=== PATIENT | male | born 1955 | race Caucasian/White ===

== ENCOUNTER 2020-11-21 13:18 | Emergency (ER) | payer OTHER, SELFPAY ==
[2020-11-21 13:46] VITALS: BP 162/97; PULSE 89; RESP 16; TEMP 36.8; O2SAT 98
--- NOTE | 2020-11-21 14:14 | ED.DENTAL ---
HPI - Dental/Oral General Chief complaint: Dental/Oral Stated complaint: gum Bleeding Time Seen by Provider: 11/21/20 13:55 Source: patient Mode of arrival: ambulatory Limitations: no limitations History of Present Illness HPI Narrative: Darwin Fuentes is a 65 yo male with PAF, hypertension, high cholesterol, chronic anticoagulation, intact care with bleeding gum. He is on Xarelto and baby aspirin and yesterday had a salad with crunchy croutons for lunch stated that his gum began to bleed then and he had difficulty stopping it. Went to bed at 1030 last night got the gum had stopped bleeding but today when he tried to eat some oatmeal the gum began to bleed again and he came to express care after 3-1/2 hours and unable to stop the oozing. I did call his PCP who is the person prescribing his beta-blockers and anticoagulation, but there is no answering service on the weekend. Called pharmacy and [facility] recommended he either go to the emergency room or come to an urgent care. On his own he held his baby aspirin last night Had bypass surgery in 2010. Was without insurance to 2018. Was found to have A. fib on exam on July 20 and had an echocardiogram and stress test that showed he had normal ejection fraction. Placed on Xarelto on August 06, 2020 and has been taking Xarelto and baby aspirin along with his beta-blockers since that time Related Data Home Medications Medication Instructions Recorded Confirmed aspirin 81 mg tablet,delayed 81 mg PO DAILY 08/23/19 11/21/20 release amlodipine 10 mg PO DAILY 11/21/20 11/21/20 atorvastatin 20 mg PO DAILY 11/21/20 11/21/20 benazepril 40 mg PO DAILY 11/21/20 11/21/20 carvedilol 25 mg PO DAILY 11/21/20 11/21/20 ezetimibe 10 mg PO DAILY 11/21/20 11/21/20 rivaroxaban [Xarelto] 20 mg PO DAILY 11/21/20 11/21/20 Allergies Allergy/AdvReac Type Severity Reaction Status Date / Time simvastatin AdvReac Intermediate Back Pain Verified 11/21/20 13:23 Review of Systems Review of Systems: Narrative: CONSTITUTIONAL: Denies fever, chills, sweats. EYES: Denies visual changes, redness, discharge. ENT: Denies rhinorrhea, congestion, sore throat, otalgia. CARDIOVASCULAR: Denies chest pain, palpitations, edema. RESPIRATORY: Denies dyspnea, wheezing, cough Mouth: Bleeding gum around tooth 29 GASTROINTESTINAL: Denies abdominal pain, nausea, vomiting, diarrhea. GENITOURINARY: Denies dysuria, hematuria, abnormal discharge SKIN: Denies rash or itching. NEUROLOGIC: Denies numbness, or focal weakness. PSYCHIATRIC: Denies anxiety or depression. [facility] Past Medical History Medical History (Updated 11/21/20 @ 14:40 by Katya Wilson CNP) Chronic anticoagulation Coronary artery disease involving coronary bypass graft PAF (paroxysmal atrial fibrillation) Family History Family History Father Family history of lung cancer, Onset Age: 75 Mother Patient's mother is Social History Social History Smoking status: Former smoker Second hand tobacco smoke exposure: No Smoking end date: 10/09/07 Alcohol intake: never Gender identity (if verbalized by the patient): Male Comments At time of signature, I agree with nursing past medical, surgical, social and family history. There is no relevant family history pertinent to the presenting complaint. Exam Narrative: Exam Narrative: GENERAL: This is a well-nourished, well-developed patient, in mild distress. Anxious HEAD: normocephalic, atraumatic. EYES: Sclera clear/white. Vision is grossly intact. EARS: External ears normal. Hearing grossly intact. NOSE: External nose normal without nasal discharge, nares without redness, no rhinorrhea Mouth: blood oozing around tooth 29-no obvious abrasion THROAT: Mucous membranes moist, NECK: Neck supple, non-tender CARDIOVASCULAR: Regularly irregular rate and rhythm
== END 2020-11-21 15:10 | disposition home or self-care (01) ==
PROVIDERS: Emergency Provider Nurse Practitioner
DX: K06.8 Other specified disorders of gingiva and edentulous alveolar ridge (principal); Z87.891 Personal history of nicotine dependence; I10 Essential (primary) hypertension; E78.00 Pure hypercholesterolemia, unspecified; I25.10 Atherosclerotic heart disease of native coronary artery without angina pectoris; Z95.1 Presence of aortocoronary bypass graft; Z79.82 Long term (current) use of aspirin
CPT/HCPCS: 99212; G0463

== ENCOUNTER 2020-12-29 19:44 | Emergency (ER) | payer OTHER, SELFPAY ==
[2020-12-29 19:52] VITALS: BP 147/81; PULSE 91; RESP 17; TEMP 37.1; O2SAT 98
--- NOTE | 2020-12-29 20:56 | PC.NURSE ---
Pts gauze pad in mouth replaced due to blood saturation. No clots seen.
--- NOTE | 2020-12-29 22:15 | PC.NURSE ---
Gum still bleeding. Gauze exchanged by MILVIA navarro
--- NOTE | 2020-12-29 22:44 | ED.GENADULT ---
HPI - General Adult General Chief complaint: Dental/Oral Stated complaint: CAN'T GET MY GUM TO STOP BLEEDING, ON XARELTO Time Seen by Provider: 12/29/20 21:18 History of Present Illness HPI narrative: Patient 65-year-old gentleman who presents to emergency department chief complaint of bleeding gums. Patient reports he is currently on Xarelto and ate. after eating he noticed that he started bleeding out of his mouth. The patient reports he tried to use pressure to the area and then used a tea bag and went to urgent care. Patient reports that urgent care sent him to the emergency department as they did not have any method to stop the bleeding.. Related Data Home Medications Medication Instructions Recorded Confirmed aspirin 81 mg tablet,delayed 81 mg PO DAILY 08/23/19 11/21/20 release amlodipine 10 mg PO DAILY 11/21/20 11/21/20 atorvastatin 20 mg PO DAILY 11/21/20 11/21/20 benazepril 40 mg PO DAILY 11/21/20 11/21/20 carvedilol 25 mg PO DAILY 11/21/20 11/21/20 ezetimibe 10 mg PO DAILY 11/21/20 11/21/20 rivaroxaban [Xarelto] 20 mg PO DAILY 11/21/20 11/21/20 Allergies Allergy/AdvReac Type Severity Reaction Status Date / Time simvastatin AdvReac Intermediate Back Pain Verified 12/29/20 20:57 Review of Systems Review of Systems: Narrative: A 10 system review of systems was completed on the patient and is negative except for what is stated in the HPI. Nursing and ancillary documentation was reviewed. [facility] Past Medical History Medical History Chronic anticoagulation Coronary artery disease involving coronary bypass graft PAF (paroxysmal atrial fibrillation) Family History Family History Father Family history of lung cancer, Onset Age: 75 Mother Patient's mother is Social History Social History Smoking status: Former smoker Second hand tobacco smoke exposure: No Smoking end date: 10/09/07 Alcohol intake: never Gender identity (if verbalized by the patient): Male Exam Narrative: Exam Narrative: GENERAL: Well-appearing, well-nourished, and in no acute distress. HEAD: Normocephalic, atraumatic. EYES: PERRLA and EOMI. ENT: Nares clear, no rhinorrhea or epistaxis. Mucous membranes moist. There is swelling and bleeding in the upper molar region. NECK: Supple. CHEST: Clear to auscultation. No respiratory distress. HEART: Regular rate and rhythm. No murmur heard. Normal peripheral pulses. ABDOMEN: Soft, nontender, nondistended, normal active bowel sounds. EXTREMITIES: Normal range of motion. No edema. SKIN: Warm, dry, no rash. NEURO: No focal deficits. Alert and oriented x3. PSYCH: Normal mood and affect. Course Course Emergency Course: A 2 x 2 was used with direct pressure to the affected area. After pressure was applied bleeding was controlled the patient was observed and currently is not having any further bleeding. Vital Signs Vital signs: Vital Signs Temperature 37.1 C 12/29/20 19:52 Pulse Rate 91 12/29/20 19:52 Respiratory Rate 17 12/29/20 19:52 Blood Pressure 147/81 H 12/29/20 19:52 Pulse Oximetry 98 12/29/20 19:52 Temperature 37.1 C 12/29/20 19:52 Pulse Rate 91 12/29/20 19:52 Respiratory Rate 17 12/29/20 19:52 Blood Pressure 147/81 H 12/29/20 19:52 Pulse Oximetry 98 12/29/20 19:52 Medical Decision Making Vital Signs Vital Signs: Vital Signs Temperature 37.1 C 12/29/20 19:52 Pulse Rate 91 12/29/20 19:52 Respiratory Rate 17 12/29/20 19:52 Blood Pressure 147/81 H 12/29/20 19:52 Pulse Oximetry 98 12/29/20 19:52 Temperature 37.1 C 12/29/20 19:52 Pulse Rate 91 12/29/20 19:52 Respiratory Rate 17 12/29/20 19:52 Blood Pressure 147/81 H 12/29/20 19:52 Pulse Oximetry 98 12/29/20 19:52 Discharge Plan Discha
== END 2020-12-29 23:13 | disposition home or self-care (01) ==
PROVIDERS: Emergency Provider Emergency Medicine; PCP Internal Medicine
DX: K06.8 Other specified disorders of gingiva and edentulous alveolar ridge (principal); I25.10 Atherosclerotic heart disease of native coronary artery without angina pectoris; I48.0 Paroxysmal atrial fibrillation; Z79.01 Long term (current) use of anticoagulants; Z79.82 Long term (current) use of aspirin; Z87.891 Personal history of nicotine dependence; Z95.1 Presence of aortocoronary bypass graft
CPT/HCPCS: 99282

== ENCOUNTER 2025-05-08 12:45 | Emergency (ER) | payer OTHER, SELFPAY ==
--- NOTE | ~2025-05-08 | XR_ITS ---
XR hip LT 2V w AP pelvis 05/08/2025 13:29 Indication: Left hip pain Procedure: AP pelvis and 2 views left hip Comparison: No prior studies for comparison. 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 There is remodeling of the femoral head and acetabulum. Moderate osteoarthritis of the right hip. Pe lvic rings intact. No acute fracture. Impression: 1: Advanced osteoarthritis of the hips, severe on the left. Reviewed, dictated and finalized at location B. Impression: 1: Advanced osteoarthritis of the hips, severe on the left.
[2025-05-08 12:46] VITALS: BP 167/77; PULSE 70; RESP 16; TEMP 36.7; O2SAT 98
--- OUTSIDE RECORDS SUMMARY | 2025-05-08 12:48 | XMS_ITS | Clinical Summary ---
Author Organization [facility] Address [address] [place] [address] Care Team Providers Care Quantitative Software Engineer Name Role Phone Ewa Rea MD Unavailable [phone] Yvonne Harrison DO Primary Care Provider [phone] Social History Tobacco Use Types Packs/Day Years Used Date Smoking Tobacco: Never Assessed Sex and Gender Information Value Date Recorded Sex Assigned at Not on file Legal Sex Male 4:15 PM CDT Gender Identity Not on file Sexual Orientation Not on file Plan of Treatment Health Maintenance Due Date Last Done Comments Colorectal Cancer Screening Colonoscopy (10 Years) 1955 Hepatitis C 1973 DTaP, Tdap and Td Vaccines ( 1 - Tdap) 1974 Pneumococcal Vaccine: 50+ Ye ars (1 of 1 - PCV) 2005 Zoster Vaccines (1 of 2) 2005 Annual Medicare Wellness Visit 2020 COVID-19 Vaccine ( - 2023-2 5 season) 2024 RSV Immunization or 60+ Years (1 - 1-dose 75+ series) 2030 Meningococcal B Vaccine Aged Out No l onger eligible based on patient's age to complete this topic Meningococcal Vaccine Aged Out No naa domingo eligible based on patient's age to complete this topic RSV Immunizations Under 20 Months Aged Out No longer eligible based on patient's age to complete this topic Insurance [employer] Care Teams Quantitative Software Engineer Relationship Specialty Start Date End Date Yvonne Harrison DO [facility] [place] [phone] PCP - General INTERNAL MEDICINE 09/12/24 Ewa Rea MD [address] [place] [id number] INTERVENTIONAL CARDIOLOGY 09/10/24
--- OUTSIDE RECORDS SUMMARY | 2025-05-08 12:48 | XMS_ITS | Encounter Summary ---
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 Historical Provider Final Res ult documented in this encounter Visit Diagnoses Not on filedocumented in this encounter Care Teams Material Control Manager Relationship Specialty Start Date End Date Yvonne Harrison DO PCP - General 07/21/20 documented as of this encounter
--- OUTSIDE RECORDS SUMMARY | 2025-05-08 12:48 | XMS_ITS | Encounter Summary ---
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 Historical Provider Final Res ult documented in this encounter Visit Diagnoses Not on filedocumented in this encounter Care Teams Religious Assistant Relationship Specialty Start Date End Date Yvonne Harrison DO PCP - General 07/21/20 documented as of this encounter
--- OUTSIDE RECORDS SUMMARY | 2025-05-08 12:48 | XMS_ITS | Clinical Summary ---
Author Organization [facility] Address [address] [place] [address] Care Team Providers Care Boot Lace Cutter Machine Name Role Phone Yvonne Harrison Primary Care Provider [phone] Allergies No known active allergies Medications rivaroxaban (XARELTO) 20 mg tablet Take 1 tablet (20 mg total) by mouth daily 0 Active carvediloL (COREG) 25 mg tablet Take 1 tablet (25 mg total) by mouth 2 (two) times a day with meals 0 Active atorvastatin (LIPITOR) 20 mg tablet Take 1 tablet (20 mg total) by mouth daily 0 Active ezetimibe (ZETIA) 10 mg tablet Take 0.5 tablets (5 mg total) by mouth daily 0 Active sacubitriL-alec sartan (Entresto) 97-103 mg tabletIndicati ons:chronic heart failure Take 1 tablet by mouth 2 (two) times a day 180 tablet 3 4 09/10/20 25 Active hydrALAZINE (APRESOLINE) 50 mg tabletIndicati ons:hypertensi on Take 1 tablet (50 mg total) by mouth 3 (three) times a day 270 tablet 3 5 02/21/20 26 Active amiodarone (PACERONE) 200 mg tablet TAKE 1 TABLET BY MOUTH EVERY DAY 90 tablet 3 5 Active Jardiance 10 mg tablet TAKE 1 TABLET BY MOUTH EVERY DAY 90 tablet 1 5 Active Jardiance 10 mg tablet TAKE 1 TABLET BY MOUTH EVERY DAY 90 tablet 1 5 04/14/20 25 Discontinued Active Problems Problem Noted Date Diagnosed Date Adverse effect of amiodarone 12/23/2024 Chronic systolic heart failure 04/05/2024 Hx of CABG 04/05/2024 Assessment & Plan (04/05/2024 10:37 PM CDT): (billings-lad, SVG-PDA, SVG-1st diagonal) Primary hypertension 04/05/2024 Coronary artery disease due to calcified coronar y lesion 04/05/2024 Longstanding persistent atrial fibrillation 03/10 Morbid obesity 04/05/2024 Encounters Date Type Department Care Team Description 04/18/[address] [facility] Medical [facility] Cardiology [address] [place] [phone] ProviderShira MD 02/24/2025 Telephone [facility] Cardiology [address] [place] [address] [place] [phone] Ewa Rea MD Hypertension from Last 3 Months Surgical History Surgery Date Site/Laterality Comments CORONARY ARTERY BYPASS GRAFT 2009 BACK SURGERY CARDIAC CATHETERIZATION Medical History Medical History Date Comments Hypertension Hyperlipidemia Atrial fibrillation (HCC) Family History Medical History Relation Name Comments No Known Problems Father No Known Problems Mother Relation Name Status Comments Father Mother Social History Tobacco Use Types Packs/Day Years Used Date Smoking Tobacco: Former Smokeless Tobacco: Never Tobacco Cessation:Counseling Given: Not Answered Alcohol Use Standard Drinks/Week Comments Never 0 (1 standard drink = 0.6 oz pur e alcohol) AUDIT-C Answer Date Recorded Q1: How often do you have a drink containing alcohol? Never 04/16/2024 Q2: How many drinks containi ng alcohol do you have on a typical day when you are drinking? Patient does not drink Q3: How often do you have si x or more drinks on one occasion? Never 04/16/2024 Personal Safety Answer Date Recorded Have you ever been in or are you currently in a harmful physical or emotional relationship or is someone making you feel afraid or unsafe? 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 Gender Identity Not on file Sexual Orientation Not on file Obstetrics History Last Filed Vital Signs Vital Sign Reading Time Taken Comments Blood Pressure 144/81 01/13/2025 10:40 AM CDT Pulse 65 01/13/2025 10:33 AM CDT Temperature 37 C (98.6 F) 01/13/2025 10:33 AM CDT Respiratory Rate 17 04/16/2024 12:4 5 PM CDT Oxygen Saturation 96% 01/13/2025 10: 33 AM CDT Inhaled Oxygen Concentration - - Weight 106.7 kg (235 lb 3.2 oz) 025 10:33 AM CDT Height 175.3 cm (5' 9) 01/13/2025 10:3 3 AM CDT Body Mass Index 34.73 01/13/2025 10:33 AM CDT Plan of Treatment Health Maintenance Due Date Last Done Comments Colon Cancer Screening-Colonoscopy 1955 Depression Screening 1955 Hepatitis C Screening 1955 Prostate Cancer Screening-PSA 1955 DTaP/Tdap/Td Vaccine (1 - Tdap) 1966 Hepatitis B Screening 1973 Pneumococcal vaccine 65+ (1 of 2 - PCV) 1974 Zoster Vaccine (1 of 2) 2005 Abdominal Aortic Aneurysm (AAA) Screen 2020 Well Visit 65+ 2020 Fall Risk Assessment 04/16/2025 04/16/2024 Influenza Vaccine (#1) 2025 08/24/2023, 2019 Procedures Procedure Name Priority Date/Time Associated Diagnosis Comments LIPID PANEL Routine 04/17/2025 9:26 AM CDT from Last 3 Months Results * (ABNORMAL) Lipid panel (04/17/2025 9:26 AM CDT) SCRIBED Cholesterol, Total 122 30 - 199 mg/dL [facility] [facility] SCRIBED Triglycerides 79 <=149 mg/dL [facility] [facility] SCRIBED HDL 37(A) >=40 mg/dL [facility] SCR[facility] LDL 69 <=129 mg/dL [facility]/[employer] Non-HDL Cholesterol 0 NONE mg/dL [facility] [employer] SCRIBED Total Cholesterol/HDL Ratio 3 NONE [facility] [employer] Blood us Historical Provider LAB BLOOD ORDERABLES Edit ed Result - Final [facility] Last [facility] Mon[facility] Insurance Care Teams Boot Lace Cutter Machine Relationship Specialty Start Date End Date Yvonne Harrison DO PCP - General 07/21/20
--- OUTSIDE RECORDS SUMMARY | 2025-05-08 12:48 | XMS_ITS | Referral Summary ---
Author Organization [facility] Address [address] [place] [address] Care Team Providers Care Steam Press Operator Name Role Phone Yvonne Harrison Primary Care Provider [phone] Encounters Date Type Department Care Team Description 04/18/2025 Orders Only [facility] Medical [facility] Cardiology [address] [place] [address] [place] [phone] Shira Najera MD 02/24/2025 Telephone [facility] Cardiology [address] [facility] [address] [place] [phone] Ewa Rea MD Hypertension from Last 3 Months Allergies No known active allergies Medications rivaroxaban [...] persistent atrial fibrillation 03/10 Morbid obesity 04/05/2024 Social History Tobacco Use Types Packs/Day Years [...] on file 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 Gender Identity Not on file Sexual Orientation Not on file Last Filed Vital Signs Vital Sign Reading [...] 01/13/2025 10:33 AM CDT Plan of Treatment Not on file Procedures Procedure Name Priority Date/Time Associated Diagnosis Comments LIPID PANEL Routine 04/17/2025 9:26 AM CDT from Last 3 Months Results * (ABNORMAL) Lipid panel (04/17/2025 9:26 AM CDT) SCRIBED Cholesterol, Total 122 30 - 199 mg/dL [facility] SCRIBED Triglycerides 79 <=149 mg/dL [facility] SCRIBED HDL 37(A) >=40 mg/dL [facility] SCRIBED LDL 69 <=129 mg/dL [facility] Scribed Non-HDL Cholesterol 0 NONE mg/dL [facility] SCRIBED Total Cholesterol/HDL Ratio 3 NONE [facility] [employer] Blood us Historical Provider LAB BLOOD ORDERABLES Edit ed Result - Final [facility] [employer] from Last 3 Months Insurance [facility] Care Teams Steam Press Operator Relationship Specialty Start Date End Date Yvonne Harrison DO PCP - General 07/21/20
--- NOTE | 2025-05-08 13:16 | ED.LOWEXIN ---
HPI - Extremity Injury (Lower) General Chief Complaint: Recheck/Abnormal Lab/Rx <Indio Olsen APRN - Last Filed: 05/08/25 18:02> Stated Complaint: LEFT HIP PAIN <Indio Olsen APRN - Last Filed: 05/08/25 18:02> Time Seen by Provider: 05/08/25 13:37 <Indio Olsen APRN - Last Filed: 05/08/25 18:02> Focused HPI: 69-year-old male presents ER complaining of left hip pain for approximately 3 years. Patient denies any apparent injury to his left hip for falls. Patient is unsure if he has any arthritis or any diagnosed hip problems. Patient said over the last 3-4 days the hip pain is became progressively worse and he states he is having a hard time walking around due to the pain. Patient is also primary who was going to order outpatient imaging however due to the amount of walking to do that he decided come to the ER for further evaluation. Patient has been taking Tylenol for pain. Patient reports having a heart history in [facility] for history of AFib. Patient denies any numbness or tingling, or shooting pains, or any other symptoms. GENERAL: Well-appearing, well-nourished, and in no acute distress. Patient ambulatory with a cane. HEAD: Normocephalic, atraumatic. CHEST: Clear to auscultation. ?No respiratory distress. HEART: Regular rate and rhythm.? NEURO: ?Alert and oriented x3. MSK: Left hip: No Shortening or rotation. Pain elicited with range of motion of left hip. Patient screened in triage and initial orders placed.? ?Additional care and disposition to be based upon?diagnostic testing and treatment. <Indio Olsen APRN - Last Filed: 05/08/25 18:02> History of Present Illness HPI Narrative: per HPI <Susan Carnes MD - Last Filed: 05/08/25 20:09> Related Data Home Medications: Home Medications ?Medication ?Instructions ?Recorded ?Confirmed ?Last Taken ?Type aspirin 81 mg tablet,delayed 81 mg PO DAILY 08/23/19 11/21/20 Unknown History release (Adult Low Dose Aspirin) amlodipine 10 mg tablet 10 mg PO DAILY 11/21/20 11/21/20 Unknown History atorvastatin 20 mg tablet 20 mg PO DAILY 11/21/20 11/21/20 Unknown History benazepril 40 mg tablet 40 mg PO DAILY 11/21/20 11/21/20 Unknown History carvedilol 25 mg tablet 25 mg PO DAILY 11/21/20 11/21/20 Unknown History ezetimibe 10 mg tablet 10 mg PO DAILY 11/21/20 11/21/20 Unknown History rivaroxaban 20 mg tablet (Xarelto) 20 mg PO DAILY 11/21/20 11/21/20 Unknown History <Indio Olsen APRN - Last Filed: 05/08/25 18:02> Allergies/Adverse Reactions: Allergies Allergy/AdvReac Type Severity Reaction Status Date / Time simvastatin AdvReac Intermediate Back Pain Verified 12/29/20 20:57 <Indio Olsen APRN - Last Filed: 05/08/25 18:02> Review of Systems Review of Systems: All systems reviewed & are unremarkable except as noted in HPI and below <Susan Carnes MD - Last Filed: 05/08/25 20:09> PMFSH Past Medical History Medical History: Medical History Chronic anticoagulation Coronary artery disease involving coronary bypass graft PAF (paroxysmal atrial fibrillation) <Indio Olsen APRN - Last Filed: 05/08/25 18:02> Family History Family History: Family History Father Family history of lung cancer, Onset Age: 75 Mother Patient's mother is <Indio Olsen APRN - Last Filed: 05/08/25 18:02> Social History Social History: Social History Smoking status: Former smoker Second hand tobacco smoke exposure: No Smoking end date: 10/09/07 Alcohol intake: never Gender identity (if verbalized by the patient): Male <Indio Olsen APRN - Last Filed: 05/08/25 18:02> Exam Narrative: EXAMINATION OF ORGAN SYSTEMS/BODY AREAS: Constitutional: Vital signs per nursing GENERAL:[No acute distress, non-toxic appearing.] HEAD: Normal with no signs of head trauma. EYES: EOMI, conjunctiva normal ENT: Hearing grossly intact LUNGS: Nonlabored breathing. HEART: [Regular rate and rhythm] ABD: [Soft], [nontender to palpation] EXT: Normal range of motion, uses a cane SKIN: [No rashes or lesions.] NEURO: [Alert and oriented x 3. No gross focal sensory or strength deficits.] PSYCH: Normal affect <Susan Carnes MD - Last Filed: 05/08/25 20:09> Course Vital Signs Vital signs: Vital Signs Temperature 98.1 F 05/08/25 12:46 Pulse Rate 70 05/08/25 12:46 Respiratory Rate 16 05/08/25 12:46 Blood Pressure 167/77 H 05/08/25 12:46 Pulse Oximetry 98 05/08/25 12:46 Oxygen Delivery Room Air 05/08/25 12:46 Temperature 98.1 F 05/08/25 12:46 Pulse Rate 70 05/08/25 12:46 Respiratory Rate 16 05/08/25 12:46 Blood Pressure 167/77 H 05/08/25 12:46 Pulse Oximetry 98 05/08/25 12:46 Oxygen Delivery Room Air 05/08/25 12:46 <Indio Olsen APRN - Last Filed: 05/08/25 18:02> Vital Signs Temperature 98.1 F 05/08/25 12:46 Pulse Rate 70 05/08/25 12:46 Respiratory Rate 16 05/08/25 12:46 Blood Pressure 167/77 H 05/08/25 12:46 Pulse Oximetry 98 05/08/25 12:46 Oxygen Delivery Room Air 05/08/25 12:46 Temperature 98.1 F 05/08/25 12:46 Pulse Rate 70 05/08/25 12:46 Respiratory Rate 16 05/08/25 12:46 Blood Pressure 167/77 H 05/08/25 12:46 Pulse Oximetry 98 05/08/25 12:46 Oxygen Delivery Room Air 05/08/25 12:46 <Susan Carnes MD - Last Filed: 05/08/25 20:09> MDM - Extremity Injury (Lower) MDM Narrative Medical decision making narrative: Patient presents here with acute on chronic left hip pain, she is using a cane and does have some discomfort to his left hip. He did drive here today. X-ray here shows severe arthritis, however no obvious fracture. Also concern for possible avascular necrosis, for unfortunately I cannot start him on steroids, he is on blood thinners so no NSAIDs, he is already taking Tylenol, I did provide prescription for some oxycodone, muscle relaxants, and he has a follow-up appointment with Orthopedics. Return precautions and x-ray findings discussed with patient <Susan Carnes MD - Last Filed: 05/08/25 20:09> Discharge Plan Discharge Clinical Impression: Chronic hip pain <Indio Olsen APRN - Last Filed: 05/08/25 18:02> Patient Disposition: Home <Indio Olsen APRN - Last Filed: 05/08/25 18:02> Condition: Stable <Indio Olsen APRN - Last Filed: 05/08/25 18:02> Instructions: Hip Pain (ED) <Indio Olsen APRN - Last Filed: 05/08/25 18:02> Additional Instructions: Please follow up with the orthopedic surgeon; you can try the medications as prescribed for breakthrough pain. You can always return to the ER for any further issues. <Indio Olsen APRN - Last Filed: 05/08/25 18:02> Patient Language: Comoran <Indio Olsen APRN - Last Filed: 05/08/25 18:02> Prescriptions: New oxycodone 5 mg capsule 5 mg PO Q8H PRN (Reason: pain) Qty: 14 0RF methocarbamol 750 mg tablet 750 mg PO TID PRN (Reason: muscle spasm) Qty: 30 0RF No Action carvedilol 25 mg tablet 25 mg PO DAILY atorvastatin 20 mg tablet 20 mg PO DAILY amlodipine 10 mg tablet 10 mg PO DAILY benazepril 40 mg tablet 40 mg PO DAILY ezetimibe 10 mg tablet 10 mg PO DAILY Xarelto 20 mg tablet 20 mg PO DAILY aspirin [Adult Low Dose Aspirin] 81 mg tablet,delayed release (DR/EC) 81 mg PO DAILY <Indio Olsen APRN - Last Filed: 05/08/25 18:02> Follow-up/Referrals: Hunter,Yvonne Dowd DO [Primary Care Provider] - <Indio Olsen, INTELLIGENCE OPERATIONS SPECIALIST - Last Filed: 05/08/25 18:02>
--- OUTSIDE RECORDS SUMMARY | 2025-05-08 13:22 | XMS_ITS | Clinical Summary ---
Author Organization [facility] Address [address] [place] [address] Care Team Providers Care Education And Training Manager Name Role Phone Yvonne Harrison Primary Care Provider [phone] Allergies No known active allergies Medications rivaroxaban [...] Department Care Team Description 04/18/2025 Orders Only [facility] Medical [facility] [address] [place] [phone] ProviderShira MD 02/24/2025 Telephone [facility] [address] [place] [address] [place] [phone] Ewa eRa MD Hypertension from Last 3 Months Surgical [...] on file 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 Gender Identity Not on file Sexual [...] Cholesterol, Total 122 30 - 199 mg/dL [facility]/[employer] [facility] SCRIBED Triglycerides 79 <=149 mg/dL [facility]/[employer] [facility] SCRIBED HDL 37(A) >=40 mg/dL [facility] SCRIBED LDL 69 <=129 mg/dL [facility]/[employer] Scribed Non-HDL Cholesterol 0 NONE mg/dL [facility] [employer] SCRIBED Total Cholesterol/HDL Ratio 3 NONE [facility] [employer] Blood us Historical Provider LAB BLOOD ORDERABLES Edit ed Result - [facility] Insurance Care Teams Education And Training Manager Relationship Specialty Start Date End Date Yvonne Harrison DO PCP - General 07/21/20
--- OUTSIDE RECORDS SUMMARY | 2025-05-08 13:23 | XMS_ITS | Clinical Summary ---
Author Organization [facility] Address [address] [place] [address] Care Team Providers Care Upset Welding Machine Operator Name Role Phone Eaw Rea MD Unavailable [phone] Yvonne Harrison DO Primary Care Provider [phone] Social History Tobacco Use Types Packs/Day Years [...] complete this topic Insurance [employer] Care Teams Upset Welding Machine Operator Relationship Specialty Start Date End Date Yvonne Harrison DO [facility] [place] [phone] PCP - General INTERNAL MEDICINE 09/12/24 Ewa Rea MD [address] [place] [id number] INTERVENTIONAL CARDIOLOGY 09/10/24
--- OUTSIDE RECORDS SUMMARY | 2025-05-08 13:23 | XMS_ITS | Referral Summary ---
Author Organization [facility] Address [address] [place] [address] Care Team Providers Care Rn Utilization Management Um Name Role Phone Yvonne Harrison Primary Care Provider [phone]- [phone] Encounters Date Type Department Care Team Description 04/18/2025 Orders Only [facility] Medical [facility] Cardiology [address] [place] [address] [place] [phone] Shira Najera MD 02/24/2025 Telephone [facility] [address] [facility] [address] [place] [phone] Ewa Rea MD Hypertension from Last [...] on file 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 Gender Identity Not on file Sexual Orientation [...] Cholesterol, Total 122 30 - 199 mg/dL [facility] SCRIBED Triglycerides 79 <=149 mg/dL [facility] SCRIBED HDL 37(A) >=40 mg/dL [facility] SCRIBED LDL 69 <=129 mg/dL [facility] Scribed Non-HDL Cholesterol 0 NONE mg/dL [facility] SCRIBED Total Cholesterol/HDL Ratio 3 NONE [facility] [employer] Blood us Historical Provider LAB BLOOD ORDERABLES Edit ed Result - Final [facility] [employer] [facility] from Last 3 Months Insurance [facility] Care Teams Rn Utilization Management Um Relationship Specialty Start Date End Date Yvonne Harrison DO PCP - General 07/21/20
--- OUTSIDE RECORDS SUMMARY | 2025-05-08 13:23 | XMS_ITS | Encounter Summary ---
Author Organization 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
--- OUTSIDE RECORDS SUMMARY | 2025-05-08 13:23 | XMS_ITS | Encounter Summary ---
Author Organization [facility] Facility Care Team Providers Care Form Coverer Name Role Phone Yvonne Harrison DO Primary Care Provider [phone] Encounter Details Date Type Department Care Team (Latest Contact Info) Description 04/04/2017 Orders Only [facility] Provider, MD Shira [address] [place] [address] Social History Tobacco Use Types Packs/Day Years Used Date Smoking Tobacco: Never Assessed Sex and Gender Information Value Date Recorded Sex Assigned at Not on file Legal Sex Male 11:57 AM BATTER OUT Gender Identity Not on file Sexual Orientation Not on file documented as of this encounter Plan of Treatment Not on file documented as of this encounter Procedures Procedure Name Priority Date/Time Associated Diagnosis Comments SCAN - LABS 12/14/2016 12:00 AM BATTER OUT documented in this encounter Results * SCAN - LABS (12/14/2016 12:00 AM BATTER OUT) Narrative 12/14/2016 12:00 AM BATTER OUT Ordered by an unspecified provider. Historical Provider Final Res ult documented in this encounter Visit Diagnoses Not on filedocumented in this encounter Care Teams Form Coverer Relationship Specialty Start Date End Date Yvonne Harrison DO PCP - General 07/21/20 documented as of this encounter
[2025-05-08] MEDS: ACETAMINOPHEN 500 MG TABLET 1000 MG PO (13:37)
== END 2025-05-08 14:40 | disposition home or self-care (01) ==
PROVIDERS: Emergency Provider Emergency Medicine; PCP Internal Medicine
DX: G89.29 Other chronic pain (principal); M25.552 Pain in left hip; I25.810 Atherosclerosis of coronary artery bypass graft(s) without angina pectoris; I48.0 Paroxysmal atrial fibrillation; Z87.891 Personal history of nicotine dependence
CPT/HCPCS: 73502; 99283; A9270

== ENCOUNTER 2025-05-22 10:34 | Outpatient (CLI) | payer OTHER, SELFPAY ==
--- OUTSIDE RECORDS SUMMARY | 2025-05-22 10:48 | XMS_ITS | Encounter Summary ---
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 Historical Provider Final Res ult documented in this encounter Visit Diagnoses Not on filedocumented in this encounter Care Teams Workers Compensation Examiner Relationship Specialty Start Date End Date Yvonne Harrison DO PCP - General 07/21/20 documented as of this encounter
--- OUTSIDE RECORDS SUMMARY | 2025-05-22 10:48 | XMS_ITS | Clinical Summary ---
Author Organization [facility] Address [address] [place] [address] Care Team Providers Care Manager Labor Delivery Name Role Phone Yvonne Harrison Primary Care Provider [phone]- [phone] Allergies No known active allergies Medications rivaroxaban (XARELTO) 20 mg tablet Take 1 tablet (20 mg total) by mouth daily 08/06/2020 Active carvediloL (COREG) 25 mg tablet Take 1 tablet (25 mg total) by mouth 2 (two) times a day with meals 07/20/2020 Active atorvastatin (LIPITOR) 20 mg tablet Take 1 tablet (20 mg total) by mouth daily 07/20/2020 Active ezetimibe (ZETIA) 10 mg tablet Take 0.5 tablets (5 mg total) by mouth daily 07/23/2020 Active sacubitriL-vals gregoria (Entresto) 97-103 mg tabletIndicatio ns:chronic heart failure Take 1 tablet by mouth 2 (two) times a day 180 tablet 3 09/10/2024 5 Active hydrALAZINE (APRESOLINE) 50 mg tabletIndicatio ns:hypertension Take 1 tablet (50 mg total) by mouth 3 (three) times a day 270 tablet 3 02/25/2025 6 Active amiodarone (PACERONE) 200 mg tablet TAKE 1 TABLET BY MOUTH EVERY DAY 90 tablet 3 03/25/2025 Active Jardiance 10 mg tablet TAKE 1 TABLET BY MOUTH EVERY DAY 90 tablet 1 04/14/2025 Active Active Problems Problem Noted Date Diagnosed Date Adverse effect of amiodarone 12/23/2024 Chronic systolic heart failure 04/05/2024 Hx of CABG 04/05/2024 Assessment & Plan (04/05/2024 10:37 PM CDT): (billings-lad, SVG-PDA, SVG-1st diagonal) Primary hypertension 04/05/2024 Coronary artery disease due to calcified coronar y lesion 04/05/2024 Longstanding persistent atrial fibrillation 03/10 Morbid obesity 04/05/2024 Encounters Date Type Department Care Team Description 04/18/2025 Orders Only [facility] [address] [place] [phone] ProviderShira MD 02/24/2025 Telephone [facility] [address] [facility] [address] [place] [address] Ewa Rea MD Hypertension from Last [...] on file 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 Gender Identity Not on file Sexual Orientation [...] Cholesterol, Total 122 30 - 199 mg/dL [facility] [email or web address] SCRIBED Triglycerides 79 <=149 mg/dL [facility] [email or web address] SCRIBED HDL 37(A) >=40 mg/dL [facility]/[employer] [facility] SCRIBED LDL 69 <=129 mg/dL [facility]/[employer] [facility] Scribed Non-HDL Cholesterol 0 NONE mg/dL [facility] [email or web address] [facility] SCRIBED Total Cholesterol/HDL Ratio 3 NONE [employer] Blood us Historical Provider LAB BLOOD ORDERABLES Edit ed Result - Final [employer] from Last 3 Months Insurance Care Teams Manager Labor Delivery Relationship Specialty Start Date End Date Yvonne Harrison DO PCP - General 07/21/20
--- OUTSIDE RECORDS SUMMARY | 2025-05-22 10:48 | XMS_ITS | Encounter Summary ---
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
--- OUTSIDE RECORDS SUMMARY | 2025-05-22 10:48 | XMS_ITS | Clinical Summary ---
Author Organization [facility] Address [address] [place] [address] Care Team Providers Care Mirror Silverer Name Role Phone Ewa Rea MD Unavailable [phone] Yvonne Harrison DO Primary Care Provider [phone] Social History Tobacco Use Types Packs/Day Years [...] complete this topic Insurance [employer] Care Teams Mirror Silverer Relationship Specialty Start Date End Date Yvonne Harrison DO [facility] [place] [phone] PCP - General INTERNAL MEDICINE 09/12/24 Ewa Rea MD [address] [place] [phone] INTERVENTIONAL CARDIOLOGY 09/10/24
--- OUTSIDE RECORDS SUMMARY | 2025-05-22 10:48 | XMS_ITS | Continuity of Care Document ---
Author Organization [facility] Address [address] [place] [address] Phone Care Team Providers Care Civil Rights Investigator Name Role Phone Aaliyah Austin Unavailable Unavailable Allergies, Adverse Reactions, Alerts Substance Reaction Status Criticality No Known Allergies Active No Inform ation Medications Medication Instructions Dosage Effective Dates (start - stop) Status Comments tramadol 50 mg tablet take 1-2 tablets by oral route every 12 hours as needed - Active carvedilol 25 mg tablet TAKE 1 TABLET BY MOUTH TWICE A DAY WITH FOOD - Active atorvastatin 20 mg tablet TAKE 1 TABLET BY MOUTH EVERY DAY - Active hydralazine 50 mg tablet take 1 tablet by oral route 3 times every day with food 50 MG - Active Entresto 97 mg-103 mg tablet take 1 tablet by oral route 2 times every day 1.00 tablet - Active XARELTO 20 MG TABLET TAKE 1 TABLET BY MOUTH EVERY DAY EVENING MEAL - Active Jardiance 10 mg tablet take 1 tablet by oral route every day in the morning 10 MG - Active 3 months of samples given to patient Lot [id number] exp Oct 2025 EZETIMIBE 10 MG TABLET TAKE 1 TABLET BY MOUTH EVERY DAY - Active Tylenol Arthritis Pain 650 mg tablet,extended release take 1 tablet by oral route every 6 hours 1 tablet - Active amiodarone 200 mg tablet take 1 tablet by oral route every day 200 MG - Active methocarbamol 750 mg tablet take 1 tablet by oral route 3 times every day 750 MG - No Longer Active Procedures Procedure Date DSCHRG MED/CURRENT MED MERGE OFFICE [id number]-[id number] BODY MASS INDEX DOCD SYST BP LT 130 MM HG DIAST BP < 80 MM HG CBC, INC PLATELETS AND DIFFERENTIAL COMPREHEN METABOLIC PANEL CMP HEMOGLOBIN A1C HGA1C, GLYCO LIPID PANEL MICROALBUMIN, QN (URINE) CREATININE, (U-R) PSA, TOTAL, SCREENING MEDICARE ONLY THYROID STIMULATION HORMONE(TSH) 2024 FALL RISK ASSESSMENT DOC'D MED LIST DOCD IN RCRD Pt inelig neg scrn depres ROUTINE VENIPUNCTURE IL OFFICE [id number] BODY MASS INDEX DOCD SYST BP GE 130 - 139MM HG DIAST BP < 80 MM HG OFFICE [id number] BODY MASS INDEX DOCD SYST BP LT 130 MM HG DIAST BP < 80 MM HG CBC, INC PLATELETS AND DIFFERENTIAL ROUTINE VENIPUNCTURE IL OFFICE [id number] BODY MASS INDEX DOCD SYST BP LT 130 MM HG DIAST BP < 80 MM HG CBC, INC PLATELETS AND DIFFERENTIAL COMPREHEN METABOLIC PANEL CMP CREATINE KINASE, TOTAL (CPK,CK) HEMOGLOBIN A1C HGA1C, GLYCO LIPID PANEL MICROALBUMIN, QN (URINE) CREATININE, (U-R) RBC SED RATE, AUTOMATED THYROID STIMULATION HORMONE(TSH) 2023 ROUTINE VENIPUNCTURE IL OFFICE [id number] BODY MASS INDEX DOCD SYST BP >= 140 MM HG6 IT DIAST BP 80-89 MM HG FECAL GLOBULIN (FOBT) CBC, INC PLATELETS AND DIFFERENTIAL COMPREHEN METABOLIC PANEL CMP CREATINE KINASE, TOTAL (CPK,CK) HEMOGLOBIN A1C HGA1C, GLYCO LIPID PANEL RBC SED RATE, AUTOMATED THYROID STIMULATION HORMONE(TSH) 2023 MICROALBUMIN, QN (URINE) CREATININE, (U-R) FALL RISK ASSESSMENT DOC'D PRES/ABSN URINE INCON ASSESS Pt inelig neg scrn depres ROUTINE VENIPUNCTURE IL OFFICE [id number]-[id number] BODY MASS INDEX DOCD SYST BP LT 130 MM HG DIAST BP < 80 MM HG CBC, INC PLATELETS AND DIFFERENTIAL COMPREHEN METABOLIC PANEL [facility] 3 HEMOGLOBIN A1C HGA1C, GLYCO MICROALBUMIN, QN (URINE) CREATININE, (U-R) THYROID STIMULATION HORMONE(TSH) 2022 PSA, TOTAL, SCREENING MEDICARE ONLY Admin influenza virus vac FLU VACC 4 HUNTER 0.5mL DOSAGE ROUTINE VENIPUNCTURE IL OFFICE [id number] BODY MASS INDEX DOCD SYST BP LT 130 MM HG DIAST BP < 80 MM HG Fecal Occult Blood Mdcr Pt inelig neg scrn depres FALL RISK ASSESSMENT DOC'D PRES/ABSN URINE INCON ASSESS OFFICE [id number]-JED-HSKPXOWO BODY MASS INDEX DOCD SYST BP LT 130 MM HG DIAST BP < 80 MM HG Admin influenza virus vac FLU VACC PRSV FREE INC ANTIG CBC, INC PLATELETS AND DIFFERENTIAL COMPREHEN METABOLIC PANEL [facility] HEMOGLOBIN A1C HGA1C, GLYCO ROUTINE VENIPUNCTURE OFFICE [id number] BODY MASS INDEX DOCD SYST BP LT 130 MM HG DIAST BP < 80 MM HG Pt inelig neg scrn depres CBC, INC PLATELETS AND DIFFERENTIAL COMPREHEN METABOLIC PANEL [facility] 2 CREATINE KINASE, TOTAL (CPK,CK) 022 HEMOGLOBIN A1C HGA1C, GLYCO LIPID PANEL MICROALBUMIN, QN (URINE) CREATININE, (U-R) PSA, TOTAL, SCREENING MEDICARE ONLY THYROID STIMULATION HORMONE(TSH) 2021 ROUTINE VENIPUNCTURE OFFICE [id number]-YUL-[id number] BODY MASS INDEX DOCD SYST BP GE 130 - 139MM HG DIAST BP < 80 MM HG Admin influenza virus vac FLU VACC 4 HUNTER 0.5mL DOSAGE PNEUMOVAX ADM MEDICARE PNEUMOVAX IMMUNIZATION CBC, INC PLATELETS AND DIFFERENTIAL COMPREHEN METABOLIC PANEL [facility] LIPID PANEL THYROID STIMULATION HORMONE(TSH) 2020 ROUTINE VENIPUNCTURE OFFICE [id number]-[id number] BODY MASS INDEX DOCD SYST BP LT 130 MM HG DIAST BP < 80 MM HG DSCHRG MED/CURRENT MED MERGE CBC, INC PLATELETS AND DIFFERENTIAL ROUTINE VENIPUNCTURE OFFICE [id number] BODY MASS INDEX DOCD SYST BP LT 130 MM HG DIAST BP < 80 MM HG FALL RISK ASSESSMENT DOC'D PRES/ABSN URINE INCON ASSESS Pt inelig neg scrn depres CBC, INC PLATELETS AND DIFFERENTIAL COMPREHEN METABOLIC PANEL CMP 0 CREATINE KINASE, TOTAL (CPK,CK) 020 HEMOGLOBIN A1C HGA1C, GLYCO LIPID PANEL PSA, TOTAL, SCREENING MEDICARE ONLY RBC SED RATE, AUTOMATED THYROID STIMULATION HORMONE(TSH) 2019 ROUTINE VENIPUNCTURE Admin influenza virus vac FLU VACC 4 HUNTER 0.5mL DOSAGE OFFICE PPUPL-UCO-OXXC-MED BODY MASS INDEX DOCD SYST BP GE 130 - 139MM HG DIAST BP < 80 MM HG EKG (ELECTROCARDIOGRAM) Advance Directives Directive Yes / No Effective Date File Name Life Support Not Answered N/A N/A Intubation Not Answered N/A N/A Antibiotics Not Answered N/A N/A IV Fluid Support Not Answered N/A N/A Tube Feed Not Answered N/A N/A Other Directive N/A N/A WARNING:The information contained in this section is historical and is provided for information only and does not constitute a legal document or any assurance that the information is still accurate. Please verify the information with the segura of the legal document before using it for clinical purposes. Encounters Encounter Description Practice Location Reason(s) For Visit Diagnoses Date Provider Providers Copied on Encounter OFFICE FIBPU-FNI-PW [facility], [address], [place], [place], [address] , [place] tel:[phone] [facility] f/u (chief complaint) Body mass index [BMI] 34.0-34.9, adultPrimary osteoarthritis of left hip 5 Eric Fischer. [address] [place] [address], [id number] , [place]. tel: [phone] Referring Provider: Yvonne Ibarra, [address] [place] [address], [address]. tel:[phone] [facility], [address], [place], [place], [address] , tel: [phone] [facility] No Information 5 Hunter Russell. [address] [place] [address], [id number] , [place]. tel: [phone] [facility], [address], [place], [place], [address] , tel: [phone] [facility] No Information 5 Stephanie Bergman. [address] [facility], [place] [address], [place], [place], [address] , . tel: [phone] Referring Provider: Rene Olivares, [address] [place] [address], [address]. [phone] OFFICE QZQZZ-HJC-YK [facility], [address], [place], [place], [address] , tel: [phone] [facility] 3 month (chief complaint)C hronic Conditions (chief complaint) Body mass index [BMI] 34.0-34.9, adultHypertensiv e heart disease with heart failureChronic diastolic (congestive) heart failureParoxysma l atrial fibrillationAthe rosclerotic heart disease of agdaagux coronary artery without angina pectorisPrediabe tesMikki in left hipScreening for prostate cancer 5 Marshall López. [address] [place] [address], [address], [place]. tel: [phone] Ewa Rea.Referr ing Provider: Yvonne Ibarra, [address] [place] [address], [address]. tel:[phone] OFFICE DEPCY-VAA-DO [facility], [address], [place], [place], [address] , tel: [phone] [facility] 3 month (chief complaint)C hronic Conditions (chief complaint)c hronic conditions (chief complaint) Body mass index [BMI] 34.0-34.9, adultHypertensiv e heart disease with heart failureParoxysma l atrial fibrillationPred iabetesAtheroscl erotic heart disease of agdaagux coronary artery without angina pectorisChronic diastolic (congestive) heart failureOther nonthrombocytope lis purpuraSleep troubleNocturia 5 Marshall López. [address] [place] [address], [address], . tel: [phone] Referring Provider: Yvonne Ibarra, [address] [place] [address], [address]. tel:[phone] [facility], [address], [place], [place], [address] , [place] tel: [phone] [facility] No Information 5 Eric Fischer. [address] [place] [address], [id number] , [place]. tel: [phone] [facility], [address], [place], [place], [address] , tel: [phone] [facility] No Information 4 Stephaniealex Bucion. [address], [id number] , . tel: [phone] Referring Provider: Aaliyah Reyes, [address] [place] [address], [address]. tel:[phone] OFFICE LMTVB-QKS-RG [facility], [address], [place], [place], [address] , tel: [phone] [facility] 1 Week follow up (chief complaint)C hronic Conditions (chief complaint)c hronic conditions (chief complaint) Hypertensive heart disease with heart failureChronic diastolic (congestive) heart failurePolycythe dorina 4 Eric Fischer. [address] [place] [address], [id number] , . tel: [phone] Ewa Rea.Referr ing Provider: Yvonne Ibarra, [address] [place] [address], [address]. tel:[phone] [facility], [address], [place], [place], [address] , tel: [phone] [facility] No Information 4 Stephanie Bergman. [address] [place] [address], [id number] , . tel: [phone] Referring Provider: Yvonne Ibarra, [address] [place] [address], [address]. tel:[phone] OFFICE XVHRH-FTB-FJ [facility], [address], [place], [place], [address] , tel: [phone] [facility] 6 month appt (chief complaint) Hypertensive heart disease with heart failureChronic diastolic (congestive) heart failurePrediabet esParoxysmal atrial fibrillationBody mass index [BMI] 33.0-33.9, adult 4 Hunter Russell. [address] [place] [address], [id number] , [place]. tel: [phone] Ewa Rea.Referr ing Provider: Yvonne Ibarra, [address] [place] [address], [address]. tel:[phone] [facility], [address], [place], [place], [address] , tel: [phone] [facility] No Information 4 Stephanie Matute [address], [id number] , . tel: [phone] Referring Provider: Yvonne Ibarra, [address] [place] [address], [address]. tel:[phone] [facility], [address], [place], [place], [address] , tel: [phone] [facility] No Information 4 Hunter Russell. [address] [place] [address], [id number] , [place]. tel: [phone] [facility], [address], [place], [place], [address] , tel: [phone] [facility] No Information 4 Stephanie Bucion. [address], [id number] , . tel: [phone] Referring Provider: Yvonne Ibarra, [address] [place] [address], [address]. [phone] OFFICE PNADE-WFC-TH [facility], [address], [place], [place], [address] , tel: [phone] [facility] 6 mo appt (chief complaint)c hronic conditions (chief complaint)C hronic Conditions (chief complaint) Body mass index [BMI] 34.0-34.9, adultHypertensiv e heart disease with heart failureChronic diastolic (congestive) heart failurePrediabet esParoxysmal atrial fibrillationOthe r nonthrombocytope lis purpuraOther fecal abnormalitiesAth erosclerotic heart disease of agdaagux coronary artery without angina pectorisSpinal stenosis, lumbar region without neurogenic claudicationPain in left hip 4 Hunter Russell. [address] [place] [address], [id number] , [place]. tel:[phone] Specialist: Ewa Rea, [address] [facility] [address], [place], [address]. tel:[phone] ng Provider: Yvonne Ibarra, [address] [place] [address], [address]. tel:[phone] [facility], [address], [place], [place], [address] , tel: [phone] [facility] No Information 3 Hunter Russell. [address] [place] [address], [id number] , [place]. tel: [phone] [facility], [address], [place], [place], [address] , [place] tel: [phone] [facility] No Information 3 Stephanie Bergman. [address], [id number] , . tel: [phone] Referring Provider: Yvonne Ibarra, [address] [place] [address], [address]. tel:[phone] OFFICE GTMHS-IDC-HD [facility], [address], [place], [place], [address] , tel: [phone] [facility] 6 month appt (chief complaint)O ther (chief complaint)C hronic Conditions (chief complaint)c hronic conditions (chief complaint) Hypertensive heart disease with heart failureChronic diastolic (congestive) heart failureParoxysma l atrial fibrillationPred iabetesOther nonthrombocytope lis purpuraBody mass index [BMI] 35.0-35.9, adult 3 Hunter Russell. [address] [place] [address], [id number] , [place]. tel: [phone] Referring Provider: Yvonne Ibarra, [address] [place] [address], [address]. tel:[phone] [facility], [address], [place], [place], [address] , [place] tel: [phone] [facility] No Information 3 Hunter Russell. [address] [place] [address], [id number] , . tel: [phone] [facility], [address], [place], [place], [address] , tel: [phone] [facility] Encounter for screening for malignant neoplasm of colon 3 Hunter Russell. [address] [place] [address], [id number] , [place]. tel: [phone] Referring Provider: Yvonne Ibarra, [address] [place] [address], [address]. tel:[phone] [facility], [address], [place], [place], [address] , tel: [phone] [facility] No Information 3 Hunter Russell. [address] [place] [address], [id number] , [place]. tel: [phone] OFFICE URDGA-ZXS-WW [facility], [address], [place], [place], [address] , tel: [phone] [facility] Chronic Conditions (chief complaint)P atient encounter (chief complaint) Body mass index [BMI] 35.0-35.9, adultHypertensiv e heart disease with heart failureChronic diastolic (congestive) heart failureAtheroscl erotic heart disease of agdaagux coronary artery without angina pectorisSpinal stenosis, lumbar region without neurogenic claudicationParo xysmal atrial fibrillationMorb id (severe) obesity due to excess caloriesScreenin g for colon cancerOther fecal abnormalities 3 Eric Fischer. [address] [place] [address], [id number] , [place]. tel: [phone] Referring Provider: Yvonne Ibarra, [address] [place] [address], [address]. tel:[phone] [facility]ICE [facility] [address], [place], [place], [address] , tel: [phone] [facility] 6 month (chief complaint)C hronic Conditions (chief complaint)c hronic conditions (chief complaint) Body mass index [BMI] 35.0-35.9, adultHypertensiv e heart disease with heart failureChronic diastolic (congestive) heart failureParoxysma l atrial fibrillationMorb id (severe) obesity due to excess caloriesAtherosc lerotic heart disease of agdaagux coronary artery without angina pectorisSpinal stenosis, lumbar region without neurogenic claudicationPosi tive colorectal cancer screening using Cologuard testPrediabetes 2 Marshall López. [address] [place] [address], [address], [place]. tel: [phone] Referring Provider: Yvonne Ibarra, [address] [place] [address], [address]. tel:[phone] [facility]ICE [facility] [address], [place], [place], [address] , [place] tel: [phone] [facility] 6 month appt (chief complaint)O ther (chief complaint)C hronic Conditions (chief complaint) Paroxysmal atrial fibrillationMorb id (severe) obesity due to excess caloriesChronic heart failure with preserved ejection fractionSpinal stenosis, lumbar region without neurogenic claudicationPosi tive colorectal cancer screening using Cologuard testHypertensive heart disease with heart failureBody mass index [BMI] 35.0-35.9, adult Apr- 2 Hunter Russell. [address] [place] [address], [id number] , [place]. [phone] Referring Provider: Yvonne Ibarra, [address] [place] [address], [address]. tel:[phone] [facility]ICE [facility], [address], [place], [place], [address] , tel: [phone] [facility] skin lesion (chief complaint)C hronic Conditions (chief complaint) Body mass index [BMI] 35.0-35.9, adultMorbid (severe) obesity due to excess caloriesParoxysm al atrial fibrillationChro lis heart failure with preserved ejection fractionSpinal stenosis, lumbar region without neurogenic claudicationPosi tive colorectal cancer screening using Cologuard testSkin lesion Jul-0 1 Eric Fischer. [address] [place] [address], [id number] , [place]. tel: [phone] Referring Provider: Yvonne Ibarra, [address] [place] [address], [address]. tel:[phone] OFFICE PWUCM-AJH-NY [facility], [address], [place], [place], [address] , tel: [phone] [facility] Chronic Conditions (chief complaint)b leeding gums (chief complaint) Body mass index (BMI) 35.0-35.9, adultParoxysmal atrial fibrillationChro lis heart failure with preserved ejection fractionPositive colorectal cancer screening using Cologuard testMorbid (severe) obesity due to excess caloriesSpinal stenosis, lumbar region without neurogenic claudication 0 1 Eric Fischer. [address] [place] [address], [id number] , [place]. tel: [phone] Referring Provider: Yvonne Ibarra, [address] [place] [address], [address]. tel:[phone] [facility], [address], [place], [place], [address] , tel: [phone] [facility] Positive colorectal cancer screening using Cologuard test Nov-2 0 Hunter Russell. [address] [place] [address], [id number] , [place]. tel: [phone] [facility], [address], [place], [place], [address] , [place] tel: [phone] [facility] Paroxysmal atrial fibrillation 0 Hunter Russell. [address] [place] [address], [id number] , [place]. tel: [phone] OFFICE MBNBH-KDO-TR -MED [facility], [address], [place], [place], [address] , [place] tel: [phone] [facility] Chronic Conditions (chief complaint) Essential (primary) hypertensionSpin al stenosis, lumbar region without neurogenic claudicationParo xysmal atrial fibrillationMorb id (severe) obesity due to excess caloriesBody mass index (BMI) 36.0-36.9, adult 0 Hunter Russell. [address] [place] [address], [id number] , . tel: [phone] Referring Provider: Yvonne Ibarra, [address] [place] [address], [address]. [phone] Family History Family Member Type Diagnosis Age At Onset Father Problem (finding) Mother Problem (finding) Father Problem malignant neoplasm of lung Mother Problem malignant neopla sm of breast in first degree relative Immunizations Vaccine Date Status Comments Moderna Spikevax COVID Vacci ne, mRNALNP, 50 mcg/0.5 mL dose, 12+ years administered Source: Other Provid er Fluzone Quad, split virus, 0.5mL dosage administered Source: New Immuniza tion Record SHINGRIX (Zoster vaccine recombinant, adjuvanted) administered Note: [facility] ; Kenzie rce: Other Provider SHINGRIX (Zoster vaccine recombinant, adjuvanted) administered Note[facility] ; Kenzie rce: Other Provider Pfizer (Arvin-Sucrose) COVID1 9 Vaccine, 0.3mL per dose, 2 doses, administered 21 days apart administered [facility] ; So urce: Other Provider Fluzone High-Dose, high dose , preservative free administered Source: New Immuniza tion Record Pfizer (Arvin-Sucrose) COVID1 9 Vaccine, 0.3mL per dose, 2 doses, administered 21 days apart administered [facility] ; So urce: Other Provider Pfizer (Arvin-Sucrose) COVID1 9 Vaccine, 0.3mL per dose, 2 doses, administered 21 days apart administered Note: [facility] ; Source : Other Provider Fluzone Quad, split virus, 0.5mL dosage administered Source: New Immuniza tion Record Pneumococcal polysaccharide PPV23 administered Source: New Immuniza tion Record Pfizer-BioNTech COVID19 Vaccine, 0.3mL per dose, 2 doses, administered [facility] ; Source: Other Provider Pfizer-BioNTech COVID19 Vaccine, 0.3mL per dose, 2 doses, administered 21 days apart [facility] ; Source: Other Provider Fluzone Quad, split virus, 0.5mL dosage administered Source: New Immuniza tion Record Payers Payer name Insurance type Covered alliance party ID Authoriza tion(s) [employer] MB [id number] [employer] MB [id number] [employer] MB [id number] [employer] MB [id number] [employer] MB [id number] Social History Type Description Quantity Date Captured Comments Alcohol Use Details No Caffeine Use Details No Tobacco Use Status Ex-cigarette smoker 025 Smoking Status Former smoker Sex Male Sexual Orientation Straight or heterosexual Gender Identity Male Vital Signs Date / Time: Height Weight BMI Pulse Rate Blood Pressure Temperature Respiratory Rate Body Surface Area Head Circumference Head Circ. Percentile Wt./Primo. Percentile BMI percentile Pulse Ox Inhaled Ox 9:29 AM 68.25 in 102.965 kg (227.00 lbs) 34.2 6 kg/m eter (2) 64 /min 126/70 mm[Hg] 96.60 F 2.23 meter(2) 96 % Chief Complaint And Reason For Visit From encounter dated '05/13/2025 09:20'. ER f/u (chief complaint). Description: Patient was evaluated at [facility] with complaints of severe left hip pain on 05/08. X-ray shows severe osteoarthritis with possible avascular necrosis. He wasdischarged home with a prescription for oxycodone and methocarbamol.He has not taken oxycodone. He states the methocarbamol makes him sleepy but is not helping with the pain. He is utilizing Tylenol arthritis but states the extra-strength Tylenol he was given in the ER usually more effective. He did contact Dr. Rice and was scheduled for a consulation 05/29. Using he is using a cane with ambulation and denies falling/injury. Reason For Referral Reason For Referral No Information Plan Of Treatment Date Type Action Status Goal Dietary management education , guidance, and counseling completed Goal Dietary management education , guidance, and counseling completed Goal Dietary management education , guidance, and counseling completed Goal Dietary management education , guidance, and counseling completed Goal Dietary management education , guidance, and counseling completed Goal Dietary management education , guidance, and counseling completed Goal Dietary management education , guidance, and counseling completed Goal Dietary management education , guidance, and counseling completed Goal Dietary management education , guidance, and counseling completed Goal Dietary management education , guidance, and counseling completed Goal Dietary management education , guidance, and counseling completed Goal Dietary management education , guidance, and counseling completed Referral Referred To: [facility]
[address], [address] [phone] Ordered: XR pelvis and left hip, 2 views Appointment date/timeframe: 07/08/2024 ordered Referral Referred To: Dr. Masters Ordered: Referrals: Dermatology. Dr. Masters. Evaluation/diagnostic/treatment - Level 3 ordered Referral Referred To: Igor Dye MD [address] [place] [address], [id number] [phone] Ordered: Referrals: Gastroenterology. Igor Dye MD. Evaluation/diagnostic/treatment - Level 3 Appointment date/timeframe: 02/17/2021 ordered Referral Referred To: Seth Landon MD [address] [facility]
[address] [place], [address] [phone] Ordered: Referrals: Cardiology. Seth Landon MD. Evaluation/diagnostic/treatment - Level 3 Appointment date/timeframe: 10/08/2020 ordered Referral Ordered: EKG (ELECTROCARDIOGRAM) ordered Referral Referred To: [address] [facility] [address] [place], [phone] Ordered: 24 hour Holter monitoring with interpretation and report by physician Appointment date/timeframe: 10/08/2020 ordered History Of Present Illness Encounter Date Complaint History Of Prese nt Illness ER f/u Patient was eval uated at [facility] with complaints of severe left hip pain on 05/08. X-ray shows severe osteoarthritis with possible avascular necrosis. He was discharged home with a prescription for oxycodone and methocarbamol.He has not taken oxycodone. He states the methocarbamol makes him sleepy but is not helping with the pain. He is utilizing Tylenol arthritis but states the extra-strength Tylenol he was given in the ER usually more effective. He did contact Dr. Rice and was scheduled for a consulation 05/29. Using he is using a cane with ambulation and denies falling/injury. 3 month Chronic Conditions *See Chronic Conditions [facility] Chronic Conditions *See Chronic Conditions [facility] chronic conditions *See Chronic Conditions [facility] 3 month Reports that he has trouble falling back asleep after he has to get up 1-3 times at night to urinate.He has not tried taking anything [id number].We discussed the potential for BPH and considered prescribing tamsulosin but given his upcoming cardiac procedures would like to hold off. He would also like to hold off at this time because he was under the impression that with age men get up to urinate a couple times. He would like to hold off labs and medication until next visit.Dr. 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 This has been normal previously. He denies tobacco use and is not taking any form of testosterone supplementation.He is not interested in a sleep study at this time.denies daytime fatigue chronic conditions *See Chronic Conditions HPI 6 month appt pt due for:Adv c are planning - pt does not have LW/POA - pt interested on information packetRecent visits:Dr Rea - appt:ECHO - tomVaccinations due:TD/TDAP - pt denies recentRSV - pt has not receivedFlu HD [facility] [place] [facility] [place] - PfizerOutstanding referrals: n/a-CHFpt denies swelling of legs/ankles, SOBpt states he monitor weight at home occasionallypt states he is avoiding salty, fried, processed foods, adding salt to foods -Paroxysmal A-fibpt denies chest pain, palpitations -Prediabetespt denies increase urinary frequency, blurred visionpt states he was prescribed Spironolactone by Dr Rea, but after 2 hours of taking the first dose pt states he started experiencing dizziness, shortness of breath, palpitations. pt states Sx lasted for almost the whole day. States he has not taken the medication since, and has not experienced any other episodes. 6 mo appt Would like sampl es of Jardiance and xareltoPast Appt- Cardio 12/16/23Echo 01/03/[address] Rea Cardio 04/01/24 Chronic Conditions *See Chronic Conditions HPI chronic conditions Other pt due for:Adv c are planning - pt does not have LW/POARecent visits:[facility] - December 2023Vaccinations due:TD/TDAP - pt denies recentSHINGRIX - February and May - CVSFlu - pt would like to receive todayOutstanding referrals:n/aQuestions:no questions 6 month appt -CHFpt denies in crease swelling of legs/ankles, SOBpt monitor weight at homept avoiding salty, fried, processed foods, adding salt to foods -Hypertensionpt reports occasional flutter, that last for a couple seconds - pt stated most recent episode happened about a week or twopt denies headaches, dizziness, nausea, lightheadedness, chest pain, palpitationspt monitor BP at homept verbalized he is compliant w/ medication -Prediabetespt denies increase urinary frequency, blurred visionpt working on healthier diet choices, exercise as tolerated.Weight gained since last OV: 0.2 lbs chronic conditions *See Chronic Conditions HPI Chronic Conditions *See Chronic Conditions HPI Chronic Conditions *See Chronic Conditions HPI Patient encounter had f/u with Colin Landon in December with mikey interested in Shingrix which was discussed in detail 6 month Pt wants flu clarence t todayBooster scheduled to get?[facility] Chronic Conditions *See Chronic Conditions HPI chronic conditions *See Chronic Conditions [facility] Chronic Conditions *See Chronic Conditions [facility] 6 month appt -CHFpt denies sw elling of legs/ankles, SOBpt monitor weight at home occasionally pt compliant avoiding salty, fried, processed foods, adding salt to foods-Obesitypt compliant w/ healthier diet choicespt no compliant w/ exercise as tolerated, due to hip pain.Weight gained since last OV: 4 lbs-Paroxysmal A-fibpt denies chest pain pt stated intermittent palpitations Other Recent visit s:Dr. Masters 09/08/2021rCarmen Landon 11/01/2021Future appt:Dr. Landon AprilrCarmen Masters Mar[place] vaccinations:pt denies COVID booster, TD/Tdap, ShingrixQuestions:pt requesting a handicap parking placard. skin lesion The patient repo rts a non healing skin lesion to his right cheek.states this has been present since 2018reports mild drainage at nightdenies a history of skin cancer Chronic Conditions *See Chronic Conditions HPI Chronic Conditions *See Chronic Conditions HPI. bleeding gums Patient has had an issues with oral bleeding which began in November; was seen in the ER for this.had a tooth extracted on 01/02 and held his anticoagulation therapy for one day following procedure. He called our office with complaints of continuous bleeding from site and was told to hold Xarelto for an additional 3 days. Pt had follow up with dentist 01/07 and was referred to an oral surgeon d/t bleeding and had the area packed, stitched and cauterized. Patient resumed Xarelto on 01/10.notes episode of bleeding from gums for several hours Monday night (2 days ago); bleeding controlled with wet tea bags, wet gauzereports missing his dose of Xarelto last nightPt reports being on a soft food restriction at this time and denies bleeding since.Dr. Landon provided verbal confirmation to hold anticoagulation for 2 weeks then restart. Chronic Conditions *See Chronic Conditions HPI Functional Status Date Functional Assessmen t No Information Medications Administered Medication Instructions Dosage Effective Dates (start - stop) Status Comments methocarbamol 750 mg tablet take 1 tablet by oral route 3 times every day 750 MG - No Longer Active Instructions Date Instruction Additional Infor paz I sent a prescriptio n for a mild pain pill called tramadol which you can utilize as needed. You can take 1 to 2 tablets every 12 hours in addition to your Tylenol to optimize pain control. I will send a referral to Dr. Fernández.Please call the office if your pain worsens Related to Primary osteoarthritis of left hip Giving encouragement to exercise Related to Body mass index (BMI) 34.0-34.9, adult Dietary management e ducation, guidance, and counseling Related to Body mass index (BMI) 34.0-34.9, adult Continue with the ca ne. Tylenol as needed. Avoid NSAIDs. Related to Pain in left hip Continue on current medication and follow with Dr. 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 Related to Prediabetes Continue on current medication and follow with cardiology. They may consider a Watchman procedure for you. Related to Paroxysmal atrial fibrillation Continue on current medication. 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 Follow with cardiology in June I recommend you weigh yourself daily and notify us if you gain 2 pounds in 24 hours or 3 to 5 pounds in a week.Follow a low-salt diet and monitor for any changes in swelling in your legs or breathing. Please call if you have any of the above issues. Related to Chronic diastolic (congestive) heart failure Fall Risk Prevention Disease process Giving encouragement to exercise Related to Body mass index (BMI) 34.0-34.9, adult Urinary Incontinence Dietary management e ducation, guidance, and counseling Related to Body mass index (BMI) 34.0-34.9, adult As above. Given your upcoming cardiac procedure we will hold off prescribing any new medication.We can check in at next visitCall with any questions or concernsNo labs today p rinted off from in 3 months Related to Nocturia Melatonin would be t he safest bbes-quo-byniigo medication. No more than 10 mg. Okay to start off at 3 mg.If you are still having issues with the urinating I would suggest checking your PSA and considering tamsulosin. Related to Sleep trouble Continue on current medication and follow with cardiology. 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 Upcoming procedures. Related to Paroxysmal atrial fibrillation Your A1c was 5.5. We can check this at a later date. Related to Prediabetes You appear to be doi ng well. Continue on Entresto Jardiance and follow with cardiology. I recommend you weigh yourself daily and notify us if you gain 2 pounds in 24 hours or 3 to 5 pounds in a week.Follow a low-salt diet and monitor for any changes in swelling in your legs or breathing. Please call if you have any of the above issues. 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 No changes at this time Related to Hypertensive heart disease with heart failure Dietary management e ducation, guidance, and counseling Related to Body mass index (BMI) 34.0-34.9, adult Giving encouragement to exercise Related to Body mass index (BMI) 34.0-34.9, adult Disease process We will recheck your blood counts again today. You are not interested in a sleep study at this time.We will continue to monitor this Related to Polycythemia Weigh yourself daily .avoid: salty foods, fried foods, processed foods, adding salt to your foods.If you notice a weight gain of 1-2 pounds in 24 hours or 3-5 pounds in 5 days call our officeKeep an eye on the swelling in your legs and your breathing Notify us of any changes Related to Chronic diastolic (congestive) heart failure Your blood pressure is well controlled today.Continue your current medications.Please call the office with any issues, questions, or concerns prior to your next appointment.Follow up again in January as scheduled Related to Hypertensive heart disease with heart failure Disease process continue with the cu rrent medicationkeep scheduled follow up with cardiologycall the office and discuss switching cardiologists to Dr. Harris Related to Paroxysmal atrial fibrillation weigh yourself daily avoid: salty foods, fried foods, processed foods, adding salt to your foods.It you notice a weight gain of 1-2 pounds in 24 hours or 3-5 pounds in 5 days call our officealso keep an eye on the swelling in your legs and your breathing. Notify us of any changes. Related to Chronic diastolic (congestive) heart failure levels will be checked Related t o Prediabetes your blood pressure is a little highI am going to add a small dose of amlodipine to help control your blood pressure get a cuff for your arm and monitor your pressures at homereturn in 1 week for a bp check Related to Hypertensive heart disease with heart failure Dietary management e ducation, guidance, and counseling Related to Body mass index (BMI) 33.0-33.9, adult Prescribed activity/ exercise education Related to Body mass index (BMI) 33.0-33.9, adult I will give you a sl ip to go to [facility] and look at the hip closerI will call you with the resultspending results we can discuss therapy or injections in the office Related to Pain in left hip see below Related to Spina l stenosis, lumbar region without neurogenic claudication keep scheduled follo w up with Cardiology 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 this happens with age and can also be related to taking aspirin. 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 Notify us of any changes. Related to Chronic diastolic (congestive) heart failure levels will be checked Related t o Prediabetes your blood pressure is stableno changes recommended Related to Hypertensive heart disease with heart failure Giving encouragement to exercise Related to Body mass index (BMI) 34.0-34.9, adult Disease process Fall Risk Prevention Urinary Incontinence Dietary management e ducation, guidance, and counseling Related to Body mass index (BMI) 34.0-34.9, adult This is the bruising you have. 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 Notify us of any changes. Related to Chronic diastolic (congestive) heart failure your blood pressure is stableno changes recommended Related to Hypertensive heart disease with heart failure Disease process Prescribed activity/ exercise education Related to Body mass index (BMI) 35.0-35.9, adult Disease process Dietary management e ducation, guidance, and counseling Related to Body mass index (BMI) 35.0-35.9, adult You're not intereste d in a colonoscopy Related to Other fecal abnormalities A stool test will be mailed to the house to check for blood.You can return this in the mail when it's completed Related to Screening for colon cancer Continue your medica tions as prescribed Related to Paroxysmal atrial fibrillation Continue to stay as active as possible and eat a well-balanced diet. 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 Carreonase call the office with any issues, questions, or concerns prior to your next appointment.Follow up again in 6 months Related to Hypertensive heart disease with heart failure Giving encouragement to exercise Related to Body mass index (BMI) 35.0-35.9, adult Urinary Incontinence Disease process Fall Risk Prevention Dietary management e ducation, guidance, and counseling Related to Body mass index (BMI) 35.0-35.9, adult You continue to decl ine colonoscopy.You are agreeable to stool cards next year. Related to Positive colorectal cancer screening using Cologuard test Your last A1c was 5. 7 which is the beginning of the prediabetes range. We will check today.See above.Call with any questions or concernsCBC, CMP, A1c todayReturn in 6 monthsFlu shot today Related to Prediabetes Continue with the ca ne and trying to be as active as possible.If you find that your pain is worsening or if you have any shooting pain or any numbness, tingling or weakness please call and let us know.Continue with Tylenol Related to Spinal stenosis, lumbar region without neurogenic claudication Continue on current medication. 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 Try to stay away from processed foods. Related to Morbid (severe) obesity due to excess calories I recommend you weig h yourself daily and notify us if you gain 2 pounds in 24 hours or 3 to 5 pounds in a week.Follow a low-salt diet and monitor for any changes in swelling in your legs or breathing. Please call if you have any of the above issues. Related to Chronic diastolic (congestive) heart failure Blood pressure is we ll controlled.New changes in medication Related to Hypertensive heart disease with heart failure Xarelto [facility] [phone] ; [facility] [phone] ; Simple Fill [phone] given today Related to Paroxysmal atrial fibrillation Giving encouragement to exercise Related to Body mass index (BMI) 35.0-35.9, adult Dietary management e ducation, guidance, and counseling Related to Body mass index (BMI) 35.0-35.9, adult Immunizations blood pressure is st ableno changes recommendedreturn to me as scheduledcall me with questions or concernslabs checked Related to Hypertensive heart disease with heart failure Stableplease call if your back pain worsens.Continue taking Tylenol as neededhandicapped parking placard paperwork completed today Related to Spinal stenosis, lumbar region without neurogenic claudication This is be monitored by Dr. Landon.Call if your lower extremity swelling worsens or you develop fatigue.Be sure to limit your sodium intake.Status: Able to self-manage condition. Goals: Your goal is to monitor your weight. Barriers: No barriers to goal achievement have been identified. Related to Chronic heart failure with preserved ejection fraction You are not interest ed in having a colonoscopy at this timecall me if you change your mindRisks were reviewed today Related to Positive colorectal cancer screening using Cologuard test Continue your Xarelt o as prescribed.Follow-up with Dr. Landon as scheduled.Please call if your palpations worsen or you develop chest pain or shortness of breath.We will check labs today.CBC, CMP, lipid panel, and TSHPlease call the office with any issues, questions, or concerns prior to your next appointment.Follow up again in 6 months Related to Paroxysmal atrial fibrillation Focus on a nutritiou s diet, exercise, and try to avoid processed foods and high-sugar foods and portion control.Aim for 30 minutes of exercise at least 5 days a week Related to Morbid (severe) obesity due to excess calories Giving encouragement to exercise Related to Body mass index (BMI) 35.0-35.9, adult Fall Risk Prevention Disease process Urinary Incontinence Dietary management e ducation, guidance, and counseling Related to Body mass index (BMI) 35.0-35.9, adult We will send referra l to Dr. Masters' office today for further evaluation Related to Skin lesion You are not interest ed in having a colonoscopy.Risks were reviewed today Related to Positive colorectal cancer screening using Cologuard test Stableplease call if your back pain worsens.Continue taking Tylenol as needed Related to Spinal stenosis, lumbar region without neurogenic claudication Focus on a nutritiou s diet, exercise, and try to avoid processed foods and high-sugar foods and portion control.Aim for 30 minutes of exercise at least 5 days a week Related to Morbid (severe) obesity due to excess calories Continue your Xarelt o as prescribed.Follow-up with Dr. Landon as scheduled.Please call if your palpations worsen or you develop chest pain or shortness of breath.We will check labs today.CBC, CMP, lipid panel, and TSHPlease call the office with any issues, questions, or concerns prior to your next appointment.Follow up again in 6 months Related to Paroxysmal atrial fibrillation This is be monitored by Dr. Landon.Call if your lower extremity swelling worsens or you develop fatigue.Be sure to limit your sodium intake.Status: Able to self-manage condition. Goals: Your goal is to monitor your weight. Barriers: No barriers to goal achievement have been identified. Related to Chronic heart failure with preserved ejection fraction Dietary management e ducation, guidance, and counseling Related to Body mass index (BMI) 35.0-35.9, adult Disease process Giving encouragement to exercise Related to Body mass index (BMI) 35.0-35.9, adult Weight is down over 8 pounds since her last appointment.Continue with your soft diet over the next month Related to Morbid (severe) obesity due to excess calories Stableplease call if your back pain worsens.Continue taking Tylenol as needed Related to Spinal stenosis, lumbar region without neurogenic claudication Okay to hold your Xa relto until 01/26 and restart.Please call if you are bleeding resumes.You deny chest pain, fatigue, palpitations.Follow-up with Dr. Landon as scheduled.We will check your blood counts today.Continue with social distancing.AVOID CROWDS AVOID TOUCHING YOUR FACE AVOID UNNECESSARY TRAVEL. WASH HANDS OFTEN. CALL WITH QUESTIONS/CONCERNS Please call the office with any issues, questions, or concerns prior to your next appointment.Follow up again in 6 months Related to Paroxysmal atrial fibrillation You cancelled your c olonoscopy with Patience Dye next month with your Afib and bleeding.I recommend rescheduling this is the future when you're not having any bleeding issues Related to Positive colorectal cancer screening using Cologuard test Ejection fraction wa s slightly decreased at 41% on your stress test.This is be monitored by Dr. Landon.Call if your develop lower extremity swelling or fatigueStatus: Able to self-manage condition. Goals: Your goal is to monitor your weight. Barriers: No barriers to goal achievement have been identified. Related to Chronic heart failure with preserved ejection fraction Giving encouragement to exercise Related to Body mass index (BMI) 35.0-35.9, adult Disease process Dietary management e ducation, guidance, and counseling Related to Body mass index (BMI) 35.0-35.9, adult continue with your l ow salt healthy dietreturn to me in 6 monthscall me with questions or concernscmp cbc tsh lipids psa to be checkedflu shot givenekg donecolon stool testing will be arranged Related to Morbid (severe) obesity due to excess calories you have had irregul ar heart beats in the past (around the time of your bypass)no need to see cardiology at presentcontinue with the baby aspirinekg done todayold records will be reviewed Related to Paroxysmal atrial fibrillation Continue with Doe jones for balance and support Related to Spinal stenosis, lumbar region without neurogenic claudication your blood pressure is excellentno change in medication Related to Essential (primary) hypertension Disease process Dietary management e ducation, guidance, and counseling Related to Body mass index (BMI) 36.0-36.9, adult Giving encouragement to exercise Related to Body mass index (BMI) 36.0-36.9, adult Assessments Type Assessment Date assessment Body mass index (BMI) 34.0-34.9, adult assessment Primary osteoarthritis of left h ip Mental Status Date Cognitive Assessment Orientation - [place] ed to time, place, person, situation. Patient Care Teams Name Effective Dates (start - stop) Status Members No Information
[2025-05-22 10:59] LABS: Hematocrit 49.9 % (42.0-52.0); Hemoglobin 16.2 g/dL (14.0-18.0); Immature Granulocyte Percent A 0.6 % (0-0.5); Lymphocytes Absolute Auto 1.46 K/mm3 (0.9-3.2); Mean Corpuscular HGB Conc 32.5 g/dl (32-36); Mean Corpuscular Hemoglobin 31.2 pg (26-34); Mean Corpuscular Volume 96.1 fl (80-100); Nucleated Red Blood Cells Absolute Auto 0.000 K/mm3 (0.0-0.012); Nucleated Red Blood Cells Perc 0.0 % (0.0-0.2); Platelet Count Result 201 k/mm3 (150-375); Red Blood Count 5.19 M/mm3 (4.6-6.20); White Blood Count 8.4 K/mm3 (4.5-10.0)
--- NOTE | 2025-05-22 11:03 | ECG_ITS ---
Test Date: 2025-05-22 11:18:22 Measurements Intervals [place] Rate: 60 P: 43 VA: 220 QRS: 8 QRSD: 107 T: -8 QT: 415 QTc: 417 Interpretive Statements SINUS RHYTHM WITH FIRST DEGREE AV BLOCK BORDERLINE R WAVE PROGRESSION, ANTERIOR LEADS CONSIDER INFERIOR INFARCT, AGE INDETERMINATE BORDERLINE T WAVE ABNORMALITY- ANTERIOR LEADS ABNORMAL ECG No previous ECG available for comparison Electronically Signed On 05-22-2025 12:32:49 CDT by Panfilo Jaime D.O.
[2025-05-22 11:21] LABS: Anion Gap 9 mmol/L (4-12); Blood Urea Nitrogen 17 mg/dL (9-20); Calcium 9.3 mg/dL (8.4-10.2); Carbon Dioxide 27 mmol/L (22-30); Chloride 104 mmol/L (98-107); Estimated Glomerular Filt Rate > 60; Glucose 104 mg/dL (65-110); Potassium 3.9 mmol/L (3.4-5.0); Sodium 140 mmol/L (137-145)
[2025-05-22 11:50] LABS: Add Urine Microscopic? YES; Appearance Urine Clear (Clear); Glucose Urine UA 3+ mg/dL (Negative); Leukocyte Esterase Ur Negative LEU/UL (Negative); Need Manual Microscopic Reviewed; Nitrate Urine Negative (Negative); Non Pathogenic Casts 0-2; Specific Grav Ur 1.042 (1.001-1.035)
== END 2025-05-22 10:35 | disposition home or self-care (01) ==
PROVIDERS: PCP Internal Medicine; Visit Provider Orthopaedic Surgery
DX: R94.31 Abnormal electrocardiogram [ECG] [EKG] (principal); I42.9 Cardiomyopathy, unspecified; I10 Essential (primary) hypertension; R53.83 Other fatigue; R73.9 Hyperglycemia, unspecified; E78.5 Hyperlipidemia, unspecified
CPT/HCPCS: 36415; 80048; 81001; 85025; 93005

== ENCOUNTER 2025-06-25 07:44 | Outpatient (CLI) | payer OTHER, SELFPAY ==
--- OUTSIDE RECORDS SUMMARY | 2025-06-23 03:42 | XMS_ITS | Continuity of Care Document ---
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 Role Phone Yvonne Harrison DO Unavailable Unavailable Allergies, Adverse Reactions, Alerts Substance [...] months of samples given to patient Lot [id number] exp Oct 2025 EZETIMIBE 10 MG TABLET TAKE 1 TABLET BY MOUTH EVERY DAY - Active Tylenol Arthritis Pain 650 mg tablet,extended release take 1 tablet by oral route every 6 hours 1 tablet - Active amiodarone 200 mg tablet take 1 tablet by oral route every day 200 MG - Active Procedures Procedure Date DSCHRG MED/CURRENT MED MERGE OFFICE [id number] BODY MASS INDEX DOCD SYST BP LT 130 MM HG DIAST BP < 80 MM HG CBC, INC PLATELETS AND DIFFERENTIAL COMPREHEN METABOLIC PANEL [facility] HEMOGLOBIN A1C HGA1C, GLYCO LIPID PANEL MICROALBUMIN, QN (URINE) CREATININE, (U-R) PSA, TOTAL, SCREENING MEDICARE ONLY THYROID STIMULATION HORMONE(TSH) 2024 FALL RISK ASSESSMENT DOC'D MED LIST DOCD IN RCRD Pt inelig neg scrn depres ROUTINE VENIPUNCTURE IL OFFICE [id number]-KJV-[id number] BODY MASS INDEX DOCD SYST BP GE 130 - 139MM HG DIAST BP < 80 MM HG OFFICE [id number]-[id number]-FAEUMCUO BODY MASS INDEX DOCD SYST BP LT 130 MM HG DIAST BP < 80 MM HG CBC, INC PLATELETS AND DIFFERENTIAL ROUTINE VENIPUNCTURE IL OFFICE TNHUF-CUG-PQSVEZHO BODY MASS INDEX DOCD SYST BP LT 130 MM HG DIAST BP < 80 MM HG CBC, INC PLATELETS AND DIFFERENTIAL COMPREHEN METABOLIC PANEL [facility] CREATINE KINASE, TOTAL (CPK,CK) 024 HEMOGLOBIN A1C HGA1C, GLYCO LIPID PANEL MICROALBUMIN, QN (URINE) CREATININE, (U-R) RBC SED RATE, AUTOMATED THYROID STIMULATION HORMONE(TSH) 2023 ROUTINE VENIPUNCTURE IL OFFICE [id number] BODY MASS INDEX DOCD SYST BP >= 140 MM HG6 IT DIAST BP 80-89 MM HG FECAL GLOBULIN (FOBT) CBC, INC PLATELETS AND DIFFERENTIAL COMPREHEN METABOLIC PANEL [facility] 4 CREATINE KINASE, TOTAL (CPK,CK) 024 HEMOGLOBIN A1C HGA1C, GLYCO LIPID PANEL RBC SED RATE, AUTOMATED THYROID STIMULATION HORMONE(TSH) 2023 MICROALBUMIN, QN (URINE) CREATININE, (U-R) FALL RISK ASSESSMENT DOC'D PRES/ABSN URINE INCON ASSESS Pt inelig neg scrn depres ROUTINE VENIPUNCTURE [place] OFFICE [id number]-OLL-[id number] BODY MASS INDEX DOCD SYST BP LT 130 MM HG DIAST BP < 80 MM HG CBC, INC PLATELETS AND DIFFERENTIAL COMPREHEN METABOLIC PANEL [facility] 3 HEMOGLOBIN A1C HGA1C, GLYCO MICROALBUMIN, QN (URINE) CREATININE, (U-R) THYROID STIMULATION HORMONE(TSH) 2022 PSA, TOTAL, SCREENING MEDICARE ONLY Admin influenza virus vac FLU VACC 4 HUNTER 0.5mL DOSAGE ROUTINE VENIPUNCTURE IL OFFICE [id number]-OQA-NFRYJEDV BODY MASS INDEX DOCD SYST BP LT 130 MM HG DIAST BP < 80 MM HG Fecal Occult Blood Mdcr Pt inelig neg scrn depres FALL RISK ASSESSMENT DOC'D PRES/ABSN URINE INCON ASSESS OFFICE [id number] BODY MASS INDEX DOCD SYST BP LT 130 MM HG DIAST BP < 80 MM HG Admin influenza virus vac FLU VACC PRSV FREE INC ANTIG CBC, INC PLATELETS AND DIFFERENTIAL COMPREHEN METABOLIC PANEL [facility] 2 HEMOGLOBIN A1C HGA1C, GLYCO ROUTINE VENIPUNCTURE OFFICE [id number]-NAV-JLONEEHF BODY MASS INDEX DOCD SYST BP LT 130 MM HG DIAST BP < 80 MM HG Pt inelig neg scrn depres CBC, INC PLATELETS AND DIFFERENTIAL COMPREHEN METABOLIC PANEL [facility] 2 CREATINE KINASE, TOTAL (CPK,CK) 022 HEMOGLOBIN A1C HGA1C, GLYCO LIPID PANEL MICROALBUMIN, QN (URINE) CREATININE, (U-R) PSA, TOTAL, SCREENING MEDICARE ONLY THYROID STIMULATION HORMONE(TSH) 2021 ROUTINE VENIPUNCTURE OFFICE SQUHU-FXU-QXKKAHEZ BODY MASS INDEX DOCD SYST BP GE 130 - 139MM HG DIAST BP < 80 MM HG Admin influenza virus vac FLU VACC 4 HUNTER 0.5mL DOSAGE PNEUMOVAX ADM MEDICARE PNEUMOVAX IMMUNIZATION CBC, INC PLATELETS AND DIFFERENTIAL COMPREHEN METABOLIC PANEL [facility] 1 LIPID PANEL THYROID STIMULATION HORMONE(TSH) ROUTINE VENIPUNCTURE OFFICE [id number]-DJS-[id number] BODY MASS INDEX DOCD SYST BP LT 130 MM HG DIAST BP < 80 MM HG DSCHRG MED/CURRENT MED MERGE CBC, INC PLATELETS AND DIFFERENTIAL ROUTINE VENIPUNCTURE Apr-07-2021 OFFICE UQFNT-XPI-PMEXMNON BODY MASS INDEX DOCD SYST BP LT [...] FLU VACC 4 HUNTER 0.5mL DOSAGE OFFICE EHSQD-QSS-JARC-MED BODY MASS INDEX DOCD SYST BP GE [...] Diagnoses Date Provider Providers Copied on Encounter [facility], [address], [place], [place], [address] , [place] tel: [phone] [facility] No Information 5 Hunter Russell. [address] [place], [place], [id number] , [place]. tel: [phone] [facility], [address], [place], [place], [address] , [place] tel:[phone] [facility] No Information 5 Marshall López. [address] [place] [address], [address], . tel: [phone] OFFICE UKIVJ-XQQ-OZ PANDED [facility], [address], [place], [place], [address] , tel: [phone] [facility] ER f/u (chief complaint) Body mass index [BMI] 34.0-34.9, adultPrimary osteoarthritis of left hip 5 Reyes Aaliyah. [address] [place] [address], [id number] , [place]. tel: [phone] Referring Provider: Yvonne Ibarra, [address] [place] [address], [address]. tel:[phone] [facility], [address], [place], [place], [address] , [place] tel: [phone] [facility] No Information 5 Hunter Russell. [address] [place] [address], [id number] , [place]. tel: [phone] [facility], [address], [place], [place], [address] , tel: [phone] [facility] No Information 5 Stephanie Bergman. [address] [place] [address], [id number] , . tel: [phone] Referring Provider: Rene Olivares, [address] [place] [address], [address]. tel:[phone] OFFICE IKYCY-HPN-NL TAILED [facility], [address], [place], [place], [address] , tel: [phone] [facility] 3 month (chief complaint)C hronic Conditions (chief complaint) Body mass index [BMI] 34.0-34.9, adultHypertensiv e heart disease with heart failureChronic diastolic (congestive) heart failureParoxysma l atrial fibrillationAthe rosclerotic heart disease of [place] coronary artery without angina pectorisPrediabe tesPain in left hipScreening for prostate cancer 5 [facility]. [address] [place] [address], [address], . tel: [phone] Ewa Rea.Referr ing Provider: Yvonne Ibarra, [address] [place] [address], [address]. tel:[phone] OFFICE CKLAZ-KMA-ZN [facility], [address], [place], [place], [address] , tel: [phone] [facility] 3 month (chief complaint)C hronic Conditions (chief complaint)c hronic conditions (chief complaint) Body mass index [BMI] 34.0-34.9, adultHypertensiv e heart disease with heart failureParoxysma l atrial fibrillationPred iabetesAtheroscl erotic heart disease of [place] coronary artery without angina pectorisChronic diastolic (congestive) heart failureOther nonthrombocytope lis purpuraSleep troubleNocturia 5 [facility]. [address] [place] [address], [address], . tel: [phone] Referring Provider: Yvonne Iabrra, [address] [place] [address], [address]. tel:[phone] [facility], [address], [place], [place], [address] , [place] tel: [phone] [facility] No Information 5 Eric Fischer. [address] [place] [address], [id number] , [place]. tel: [phone] [facility], [address], [place], [place], [address] , tel: [phone] [facility] No Information 4 Stephanie Bucion. [address], [id number] , . tel: [phone] Referring Provider: Aaliyah Reyes, [address] [place] [address], [address]. tel:[phone] OFFICE WSBXI-TPR-XJ [facility], [address], [place], [place], [address] , [place] tel: [phone] [facility] 1 Week follow up (chief complaint)C hronic Conditions (chief complaint)c hronic conditions (chief complaint) Hypertensive heart disease with heart failureChronic diastolic (congestive) heart failurePolycythe dorina 4 Eric Fischer. [address] [place] [address], [id number] , [place]. tel:[phone] Ewa Rea.Referr ing Provider: Yvonne Ibarra, [address] [place] [address], [address]. tel:[phone] [facility], [address], [place], [place], [address] , [place] tel: [phone] [facility] No Information 4 Stephanie Bucion. [address], [id number] , . tel: [phone] Referring Provider: Yvonne Ibarra, [address] [place] [address], [address]. [phone] OFFICE RMLAB-FYG-TQ [facility], [address], [place], [address] , [place] tel: [phone] [facility] 6 month appt (chief complaint) Hypertensive heart disease with heart failureChronic diastolic (congestive) heart failurePrediabet esParoxysmal atrial fibrillationBody mass index [BMI] 33.0-33.9, adult 4 Hunter Russell. [address] [place] [address] [place], [id number] , [place]. tel:[phone] Ewa Rea.Referr ing Provider: Yvonne Ibarra, [address] [place] [address], [address]. [phone] [facility], [address], [place], [place], [address] , tel: [phone] [facility] No Information 4 Stephanie Bucion. [address], [id number] , [place]. tel: [phone] Referring Provider: Yvonne Ibarra, [address] [place] [address], [address]. tel:[phone] [facility], [address], [place], [place], [address] , tel: [phone] [facility] No Information 4 Hunter Russell. [address] [place] [address], [id number] , [place]. tel: [phone] [facility], [address] [facility], [place], [place], [address] , [place] tel: [phone] [facility] No Information 4 Stephanie Bucion. [address] [place] [address], [id number] , [place]. tel: [phone] Referring Provider: Yvonne Ibarra, [address] [place] [address], [address]. tel:[phone] OFFICE HLDZB-KGW-AN [facility], [address], [place], [place], [address] , [place] tel: [phone] [facility] (chief complaint)c hronic conditions (chief complaint)C hronic Conditions (chief complaint) Body mass index [BMI] 34.0-34.9, adultHypertensiv e heart disease with heart failureChronic diastolic (congestive) heart failurePrediabet esParoxysmal atrial fibrillationOthe r nonthrombocytope lis purpuraOther fecal abnormalitiesAth erosclerotic heart disease of [place] coronary artery without angina pectorisSpinal stenosis, lumbar region without neurogenic claudicationPain in left hip 4 Hunter Russell. [address] [place] [address], [id number] , [place]. tel:[phone] Specialist: Ewa Rea, [address] [facility] [address], [place], [address]. [phone] ng Provider: Yvonne Ibarra, [address] [place] [address], [address]. [phone] [facility], [address], [place], [place], [address] , [place] tel: [phone] [facility] No Information 3 Hunter Russell. [address] [place] [address], [id number] , [place]. tel:[phone] [facility], [address], [place], [place], [address] , [place] tel: [phone] [facility] No Information 3 Stephanie Bucion. [address], [id number] , [place]. tel: [phone] Referring Provider: Yvonne Ibarra, [address] [place] [address], [address]. [phone] OFFICE NVRAO-LIH-GZ [facility], [address], [place], [place], [address] , [place] tel: [phone] [facility] 6 month appt (chief complaint)O ther (chief complaint)C hronic Conditions (chief complaint)c hronic conditions (chief complaint) Hypertensive heart disease with heart failureChronic diastolic (congestive) heart failureParoxysma l atrial fibrillationPred iabetesOther nonthrombocytope lis purpuraBody mass index [BMI] 35.0-35.9, adult 3 Hunter Russell. [address] [place] [address], [id number] , . tel: [phone] Referring Provider: Yvonne Ibarra, [address] [place] [address], [address]. tel:[phone] [facility], [address], [place], [place], [address] , [place] tel: [phone] [facility] No Information 3 Hunter Russell. [address] [place] [address], [id number] , [place]. tel: [phone] [facility], [address], [place], [place], [address] , tel: [phone] [facility] Encounter for screening for malignant neoplasm of colon 3 Hunter Russell. [address] [place] [address], [id number] , [place]. tel: [phone] Referring Provider: Yvonen Ibarra, [address] [place] [address], [address]. tel:[phone] [facility], [address], [place], [place], [address] , [place] tel: [phone] [facility] No Information 3 Hunter Russell. [address] [place] [address], [id number] , [place]. tel: [phone] OFFICE COSNX-VXW-PJ [facility], [address], [place], [place], [address] , [place] tel: [phone] [facility] Chronic Conditions (chief complaint)P atient encounter (chief complaint) Body mass index [BMI] 35.0-35.9, adultHypertensiv e heart disease with heart failureChronic diastolic (congestive) heart failureAtheroscl erotic heart disease of [place] coronary artery without angina pectorisSpinal stenosis, lumbar region without neurogenic claudicationParo xysmal atrial fibrillationMorb id (severe) obesity due to excess caloriesScreenin g for colon cancerOther fecal abnormalities 3 Eric Fischer. [address] [place] [address], [id number] , [place]. [phone] Referring Provider: Yvonne Ibarra, [address] [place] [address], [address]. tel:[phone] OFFICE ZQUUO-LXR-JYSCI-[facility], [address], [place], [place], [address] , [place] tel: [phone] [facility] 6 month (chief complaint)C hronic Conditions (chief complaint)c hronic conditions (chief complaint) Body mass index [BMI] 35.0-35.9, adultHypertensiv e heart disease with heart failureChronic diastolic (congestive) heart failureParoxysma l atrial fibrillationMorb id (severe) obesity due to excess caloriesAtherosc lerotic heart disease of [place] coronary artery without angina pectorisSpinal stenosis, lumbar region without neurogenic claudicationPosi tive colorectal cancer screening using Cologuard testPrediabetes 2 Marshall Rene. [address] [place] [address], [address], [place]. [phone] Referring Provider: Yvonne Ibarra, [address] [place] [address], [address]. tel:[phone] OFFICE EUXKE-CDH-ZGSCI-[facility], [address], [place], [place], [address] , [place] tel: [phone] [facility] 6 month appt (chief complaint)O ther (chief complaint)C hronic Conditions (chief complaint) Paroxysmal atrial fibrillationMorb id (severe) obesity due to excess caloriesChronic heart failure with preserved ejection fractionSpinal stenosis, lumbar region without neurogenic claudicationPosi tive colorectal cancer screening using Cologuard testHypertensive heart disease with heart failureBody mass index [BMI] 35.0-35.9, adult Apr-2 2 Hunter Russell. [address] [place] [address], [id number] , [place]. tel: [phone] Referring Provider: Yvonne Ibarra, [address] [place] [address], [place], [address]. tel:[phone] OFFICE [facility], [address], [place], [place], [address] , tel: [phone] [facility] skin lesion (chief complaint)C hronic Conditions (chief complaint) Body mass index [BMI] 35.0-35.9, adultMorbid (severe) obesity due to excess caloriesParoxysm al atrial fibrillationChro lis heart failure with preserved ejection fractionSpinal stenosis, lumbar region without neurogenic claudicationPosi tive colorectal cancer screening using Cologuard testSkin lesion Jul-0 1 Eric Fischer. [address] [place] [address], [id number] , [place]. tel: [phone] Referring Provider: Yvonne Ibarra, [address] [place] [address], [address]. tel:[phone] OFFICE [facility]GCIA[facility]BW[facility], [address], [place], [place], [address] , tel: [phone] [facility] Chronic Conditions (chief complaint)b leeding gums (chief complaint) Body mass index (BMI) 35.0-35.9, adultParoxysmal atrial fibrillationChro lis heart failure with preserved ejection fractionPositive colorectal cancer screening using Cologuard testMorbid (severe) obesity due to excess caloriesSpinal stenosis, lumbar region without neurogenic claudication Jan-0 1 Eric Fischer. [address] [place] [address], [id number] , [place]. tel: [phone] Referring Provider: Yvonne Ibarra, [address] [place] [address], [place], [address]. tel:[phone] [facility], [address], [place], [place], [address] , tel: [phone] [facility] Positive colorectal cancer screening using Cologuard test 0 Hunter Russell. [address] [place] [address], [id number] , . tel: [phone] [facility], [address], [place], [place], [address] , tel: [phone] [facility] Paroxysmal atrial fibrillation 0 Hunter Russell. [address] [place] [address], [id number] , . tel: [phone] OFFICE LJRBS-ASG-AU MP-MED [facility], [address], [place], [place], [address] , tel: [phone] [facility] Chronic Conditions (chief complaint) Essential (primary) hypertensionSpin al stenosis, lumbar region without neurogenic claudicationParo xysmal atrial fibrillationMorb id (severe) obesity due to excess caloriesBody mass index (BMI) 36.0-36.9, adult 0 Hunter Russell. [address] [place] [address], [id number] , . tel:[phone] Referring Provider: Yvonne Ibarra, [address] [place] [address], [address]. tel:[phone] Family History Family Member Type Diagnosis Age [...] doses, administered 21 days apart [facility] ; Source: Other Provider Pfizer-BioNTech COVID19 Vaccine, 0.3mL per dose, 2 doses, administered 21 days apart administered [facility] ; Source: Other Provider Fluzone Quad, split virus, 0.5mL dosage administered Source: New Immuniza tion Record Payers Payer name Insurance type Covered green party ID Authoriza tion(s) Zero [place]ocus MB [id number] Zero [employer] MB [id number] [employer] MB [id number] Zero [employer] MB [id number] [employer] MB [id number] Social History Type Description Quantity Date Captured Comments Alcohol Use Details Unknown Caffeine Use Details Unknown Tobacco Use Status No Information Smoking Status No Information Sex Male Sexual Orientation Straight or heterosexual Gender Identity Male Chief Complaint And Reason For Visit No Information Reason For Referral Reason For Referral No [...] and counseling completed Referral Referred To: [address] [employer]
[address], [phone] Ordered: XR pelvis and left hip, 2 views Appointment date/timeframe: 07/08/2024 ordered Referral Referred To: Dr. Masters Ordered: Referrals: Dermatology. Dr. Masters. Evaluation/diagnostic/treatment - Level 3 ordered Referral Referred To: Igor Dye MD [address] [place] [address], [address] [phone] Ordered: Referrals: Gastroenterology. Igor Dye MD. Evaluation/diagnostic/treatment - Level 3 Appointment date/timeframe: 02/17/2021 ordered Referral Referred To: Seth Landon MD [address] [facility]
[address], [phone] Ordered: Referrals: Cardiology. Seth Landon MD. Evaluation/diagnostic/treatment - Level 3 Appointment date/timeframe: 10/08/2020 ordered Referral Ordered: EKG (ELECTROCARDIOGRAM) ordered Referral Referred To: [address] [facility] [place], [place], [phone] Ordered: 24 hour Holter monitoring with interpretation and report by physician Appointment date/timeframe: 10/08/2020 ordered History Of Present Illness Encounter Date Complaint History Of Prese nt Illness ER f/u Patient was eval uated at [place] [facility] with complaints of severe left hip [...] 3 month Chronic Conditions *See Chronic Conditions [facility] Chronic Conditions *See Chronic Conditions [facility] chronic conditions *See Chronic Conditions [facility] 3 month Reports that he has trouble falling back asleep after he has to get up 1-3 times at night to urinate.He has not tried taking anything wqst-eag-biyeyyw.We discussed the potential for BPH and considered [...] ablation 01/13/25 Chronic Conditions *See Chronic Conditions [facility] 1 Week follow up past appointmen luis Tolbert completed 09/11/[address] 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 This has been normal previously. He denies tobacco use and is not taking any form of testosterone supplementation.He is not interested in a sleep study at this time.denies daytime fatigue chronic conditions *See Chronic Conditions [facility] 6 month appt pt due for:Adv c are planning - pt does not have LW/POA - pt interested on information packetRecent visits:Dr Rea - appt:ECHO - tomorrowVaccinations due:TD/TDAP - pt denies recentRSV - pt has not receivedFlu [facility] [place] [place] - PfizerOutstanding referrals: n/a-CHFpt denies swelling of [...] are planning - pt does not have LW/Sumeet Kruger visits:[facility]iology - December 2023Vaccinations due:TD/TDAP - pt denies recentSHINGRIX - February and MayFlu - pt would like to receive todayOutstanding [...] flu clarence t todayBooster scheduled to get?In doughnut holeSamples? Chronic Conditions *See Chronic Conditions HPI chronic conditions *See Chronic Conditions HPI Chronic Conditions *See Chronic Conditions HPI 6 month appt -CHFpt denies sw elling of legs/ankles, SOBpt monitor weight at home occasionally pt compliant avoiding salty, fried, processed foods, adding salt to foods-Obesitypt compliant w/ healthier diet choicespt no compliant w/ exercise as tolerated, due to hip pain.Weight gained since last OV: 4 lbs-Paroxysmal A-fibpt denies chest pain pt stated intermittent palpitations Other Recent visit s:Dr. Masters 1Dr. Barbi 11/01/2021Future appt:Dr. Landon AprilrCarmen Masters Marchecent vaccinations:pt [...] of bleeding from gums for several hours Srinivasan night (2 days ago); bleeding controlled with wet tea bags, wet gauzereports missing his dose of Xarelto last nightPt reports being on a soft food restriction at this time and denies bleeding since.Dr. Landon provided verbal confirmation to hold anticoagulation for 2 weeks then restart. Chronic Conditions *See Chronic Conditions HPI Functional Status Date Functional Assessmen t No Information Instructions Date Instruction Additional Infor mation I sent a prescriptio n for a [...] Rea Related to Atherosclerotic heart disease of [place] coronary artery without angina pectoris Yes I will be checke d.Call with any questions or concernsLabs todayReturn in 6 months Related to Screening for prostate cancer A1c will be checked. Related to Prediabetes Continue on current medication and follow with cardiology. They may consider a Watchman procedure for you. Related to Paroxysmal atrial fibrillation Continue on current medication. Monitor your blood pressure from home and if the systolic number is higher in the 140s consistently please contact your care director Related to Hypertensive heart disease with heart [...] Nocturia Melatonin would be t he safest [id number] medication. No more than 10 mg. Okay to start off at 3 mg.If you are still having issues with the urinating I would suggest checking your PSA and considering tamsulosin. Related to Sleep trouble Continue on current medication and follow with cardiology. Related to Atherosclerotic heart disease of [place] coronary artery without angina pectoris Continue on [...] heart failure Disease process [facility] follow up with cardiologycall the [...] you a sl ip to go to [facility] and look at the hip closerI will call you with the resultspending results we can discuss therapy or injections in the office Related to Pain in left hip see below Related to Spina l stenosis, lumbar region without neurogenic claudication keep scheduled follo w up with Cardiology Related to Atherosclerotic heart disease of [place] coronary artery without angina pectoris I will [...] reltosamples given Related to Paroxysmal atrial fibrillation Nov-16-2023 weigh yourself daily avoid: salty foods, fried [...] scheduled Related to Atherosclerotic heart disease of [place] coronary artery without angina pectoris Continue to [...] medication. Related to Atherosclerotic heart disease of [place] coronary artery without angina pectoris We discussed [...] to Hypertensive heart disease with heart failure [facility] Path [phone] ; [facility] [employer] [phone] ; Simple Fill [phone] given today Related to Paroxysmal atrial fibrillation [...] (BMI) 36.0-36.9, adult Assessments Type Assessment Date No Information Patient Care Teams Name Effective Dates (start - stop) Status Members No Information
--- OUTSIDE RECORDS SUMMARY | 2025-06-25 07:58 | XMS_ITS | Clinical Summary ---
Author Organization [facility] Address [address] [place] [address] Care Team Providers Care Stretch Press Operator Name Role Phone Yvonne Harrison Primary Care Provider [phone] Allergies No known active allergies Medications rivaroxaban [...] EVERY DAY 90 tablet 1 04/14/2025 Active traMADoL (ULTRAM) 50 mg tablet 1 tablet (50 mg total) 05/13/2025 Active acetaminophen (TYLENOL) 500 mg tablet Take 1 tablet (500 mg total) by mouth every 6 (six) hours as needed for pain Active Active Problems Problem Noted Date Diagnosed Date Adverse effect of amiodarone 12/23/2024 Chronic systolic heart failure 04/05/2024 Hx of CABG 04/05/2024 Assessment & Plan (04/05/2024 10:37 PM CDT): (billings-lad, SVG-PDA, SVG-1st diagonal) Primary hypertension 04/05/2024 Coronary artery disease due to calcified coronar y lesion 04/05/2024 Longstanding persistent atrial fibrillation 03/10 Morbid obesity 04/05/2024 Encounters Date Type Department Care Team Description 06/19/2025 10:00 AM CDT Office Visit [facility] Card[facility] [address] [place] [phone] Ewa Rea MD Chronic systolic heart failure (HCC) (Primary Dx); Adverse effect of amiodarone, initial encounter; Hx of CABG; Longstanding persistent atrial fibrillation (HCC) 06/18/2025 Telephone [facility] [address] [place] [phone] Ewa Rea MD Cardiac Clearance Request 04/18/2025 Orders Only [facility] [address] [place] [phone] ProviderShira MD from Last 3 Months Surgical History Surgery [...] on file 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 Gender Identity Not on file Sexual Orientation Not on file Obstetrics History Last Filed Vital Signs Vital Sign Reading Time Taken Comments Blood Pressure 110/66 06/19/2025 9:37 AM CDT Pulse 70 06/19/2025 9:37 AM CDT Temperature 37 C (98.6 F) 01/13/2025 10:33 AM CDT Respiratory Rate 17 04/16/2024 12:45 PM CDT Oxygen Saturation 96% 06/19/2025 9:37 AM CDT Inhaled Oxygen Concentration - - Weight 103 kg (227 lb) 06/19/2025 9:37 AM CDT Height 175.3 cm (5' 9) 01/13/2025 10:33 AM CDT Body Mass Index 33.52 01/13/2025 10:33 AM CDT Plan of Treatment [...] Assessment 04/16/2025 04/16/2024 Influenza Vaccine (#1) 2025 07/20/2020 Procedures Procedure Name Priority Date/Time Associated Diagnosis Comments LIPID PANEL Routine 04/17/2025 9:26 AM CDT from Last 3 Months Results * (ABNORMAL) Lipid panel (04/17/2025 9:26 AM CDT) SCRIBED Cholesterol, Total 122 30 - 199 mg/dL [facility] SCRIBED Triglycerides 79 <=149 mg/dL [facility] SCRIBED HDL 37(A) >=40 mg/dL [facility] SCRIBED LDL 69 <=129 mg/dL [facility] Scribed Non-HDL Cholesterol 0 NONE mg/dL [facility] SCRIBED Total Cholesterol/HDL Ratio 3 NONE [facility] Blood us Historical Provider LAB BLOOD ORDERABLES Edit ed Result - Final [facility] from Last 3 Months Insurance [facility] Care Teams Stretch Press Operator Relationship Specialty Start Date End Date Yvonne Harrison DO PCP - General 07/21/20
--- OUTSIDE RECORDS SUMMARY | 2025-06-25 07:59 | XMS_ITS | Encounter Summary ---
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 Historical Provider Final Res ult documented in this encounter Visit Diagnoses Not on filedocumented in this encounter Care Teams Hot Wire Glass Tube Cutter Relationship Specialty Start Date End Date Yvonne Harrison DO PCP - General 07/21/20 documented as of this encounter
--- OUTSIDE RECORDS SUMMARY | 2025-06-25 07:59 | XMS_ITS | Encounter Summary ---
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
--- OUTSIDE RECORDS SUMMARY | 2025-06-25 07:59 | XMS_ITS | Clinical Summary ---
Author Organization [facility] Address [address] [place] [address] Care Team Providers Care Driving School Instructor Name Role Phone Ewa Rea MD Unavailable [phone] Yvonne Harrison DO Primary Care Provider [phone] Social History Tobacco Use Types Packs/Day Years [...] COVID-19 Vaccine ( - 2023-2 5 season) 2025 RSV Immunization or 60+ Years (1 - [...] complete this topic Insurance [employer] Care Teams Driving School Instructor Relationship Specialty Start Date End Date Yvonne Harrison DO [facility] [place] [phone] PCP - General INTERNAL MEDICINE 09/12/24 Ewa Rea MD [address] [place] [phone] INTERVENTIONAL CARDIOLOGY 09/10/24
[2025-06-25 09:49] LABS: Albumin Level 4.4 g/dL (3.5-5.1)
[2025-06-25 09:53] LABS: INR 1.7; Prothrombin Time 19.7 Seconds (11.1-14.7)
[2025-06-25 09:54] LABS: Partial Thromboplastin Time 44.5 Seconds (22.3-36.8)
[2025-06-25 10:01] LABS: Hemoglobin A1C 5.3 % (<5.7)
[2025-06-25 10:52] LABS: MRSA (PCR) NOT DETECTED (NOT DETECTE)
== END 2025-06-25 07:45 | disposition home or self-care (01) ==
LOC: ANHSURGERY 07:48
PROVIDERS: PCP Internal Medicine; Visit Provider Orthopaedic Surgery
DX: Z01.812 Encounter for preprocedural laboratory examination (principal); M16.9 Osteoarthritis of hip, unspecified
CPT/HCPCS: 80307; 82040; 83036; 85610; 85730; 86850; 86900; 86901; 87641

== ENCOUNTER 2025-07-02 01:56 | Day surgery (SDC) | payer OTHER, SELFPAY ==
--- NOTE | 2025-06-25 07:50 | PC.NURSE ---
Report to the Outpatient Waiting Room, entrance under the green pavilion located off [facility], at time ___9 am____ on 07/02/25 . Planned Procedure Time: __11 AM .? Time changes happen often and if your time is changed the preop area will call you the afternoon before. - You and your visitor will be asked to self-screen and do not enter if you have any COVID symptoms. Please call surgeon if you need to reschedule. - A mask is optional within the hospital at this time. Patients may have clear liquids (water, carbonated beverages, clear teas, apple juice) until 3 hours prior to surgery( 8AM) with a maximum of 20 ounces. - No food from midnight until time of surgery and no smoking, or chewing tobacco (or any form of nicotine). No chewing gum, candy or mints. - Take only the following medications with a SIP of water on the morning of surgery: _AMIODARONE,CARVEDILOL,HYDRALAZINE DO NOT STOP ANY OF YOUR OTHER PRESCRIPTION MEDICATIONS PRIOR TO SURGERY EXCEPT THE FOLLOWING Hold all vitamins and supplements for 3 days per anesthesiologist. Medications to discontinue per physician PATIENT STATES HOLD XARELTO 3 DAYS PRE OP PER DR LEIVA Date to take last dose____06/28/25 Please no make-up, nail kinyarwanda, hairspray, perfume, deodorant, or body powder the day of surgery.? No jewelry (including any body piercings) or valuables the day of surgery, leave them at home.? Please take a shower or bath the night before, or the morning of, surgery with an antibacterial soap.? Wear comfortable, loose fitting clothing.? Children are encouraged to wear pajamas. - Jewelry must be removed prior to entering the operating room.? Rings and piercings that are not removed may be cut off. - The hospital will not accept responsibility for valuables.? - Please leave all valuables, including medications, at home the day of surgery. If you are going home after surgery, a licensed driver starting gate must drive you home.? - NO public transportation without another adult if you receive anesthesia. - We recommend that an adult stay with you for 24 hours following discharge. - We also recommend that you do not drive, make important decision, drink alcoholic beverages, or take any drugs that were not prescribed by your health care provider for at least 24 hours after your discharge time. For Pediatric surgeries, we recommend two adults accompany the child home. Follow any additional instructions given to you from your surgeon. VERBAL AND WRITTEN instructions given to __PATIENT and asked if any additional questions and then verbalized understanding. Patient advised to call surgeon office or pre surgery nurse liaison [phone] if any additional questions.
[2025-06-25 07:52] VITALS: BMI 34.4
[2025-06-25 08:43] VITALS: BP 149/82; PULSE 60; RESP 18; TEMP 37; O2SAT 97
--- OUTSIDE RECORDS SUMMARY | 2025-06-26 09:06 | XMS_ITS | Continuity of Care Document ---
Author Organization [employer] [place] Address [address] [place] [address] Phone Care Team Providers Care Senior Librarian Name Role Phone Yvonne Harrison DO Unavailable [...] months of samples given to patient Lot [id number] exp Oct 2025 EZETIMIBE 10 MG TABLET TAKE 1 TABLET BY MOUTH EVERY DAY - Active Tylenol Arthritis Pain 650 mg tablet,extended release take 1 tablet by oral route every 6 hours 1 tablet - Active amiodarone 200 mg tablet take 1 tablet by oral route every day 200 MG - Active Procedures Procedure Date DSCHRG MED/CURRENT MED MERGE OFFICE EOMJA-PAT-TVTTRNHK BODY MASS INDEX DOCD SYST BP LT 130 MM HG DIAST BP < 80 MM HG CBC, INC PLATELETS AND DIFFERENTIAL COMPREHEN METABOLIC PANEL [facility] HEMOGLOBIN A1C HGA1C, GLYCO LIPID PANEL MICROALBUMIN, QN (URINE) CREATININE, (U-R) PSA, TOTAL, SCREENING MEDICARE ONLY THYROID STIMULATION HORMONE(TSH) 2024 FALL RISK ASSESSMENT DOC'D MED LIST DOCD IN RCRD Pt inelig neg scrn depres ROUTINE VENIPUNCTURE IL OFFICE CYKGY-DKS-BYUMKXMF BODY MASS INDEX DOCD SYST BP GE 130 - 139MM HG DIAST BP < 80 MM HG OFFICE BYPCA-LCW-PTEYSQID BODY MASS INDEX DOCD SYST BP LT 130 MM HG DIAST BP < 80 MM HG CBC, INC PLATELETS AND DIFFERENTIAL ROUTINE VENIPUNCTURE IL OFFICE RIBJY-PSH-IOXJRSQT BODY MASS INDEX DOCD SYST BP LT 130 MM HG DIAST BP < 80 MM HG CBC, INC PLATELETS AND DIFFERENTIAL COMPREHEN METABOLIC PANEL [facility] CREATINE KINASE, TOTAL (CPK,CK) 024 HEMOGLOBIN A1C HGA1C, GLYCO LIPID PANEL MICROALBUMIN, QN (URINE) CREATININE, (U-R) RBC SED RATE, AUTOMATED THYROID STIMULATION HORMONE(TSH) 2023 ROUTINE VENIPUNCTURE IL OFFICE RNXLX-NCG-LNOXCVUX BODY MASS INDEX DOCD SYST BP >= 140 MM HG6 IT DIAST BP 80-89 MM HG FECAL GLOBULIN (FOBT) CBC, INC PLATELETS AND DIFFERENTIAL COMPREHEN METABOLIC PANEL [facility] 4 CREATINE KINASE, TOTAL (CPK,CK) 024 HEMOGLOBIN A1C HGA1C, GLYCO LIPID PANEL RBC SED RATE, AUTOMATED THYROID STIMULATION HORMONE(TSH) 2023 MICROALBUMIN, QN (URINE) CREATININE, (U-R) FALL RISK ASSESSMENT DOC'D PRES/ABSN URINE INCON ASSESS Pt inelig neg scrn depres ROUTINE VENIPUNCTURE IL OFFICE HYZVJ-DKS-OFKCVLIM BODY MASS INDEX DOCD SYST BP LT 130 MM HG DIAST BP < 80 MM HG CBC, INC PLATELETS AND DIFFERENTIAL COMPREHEN METABOLIC PANEL [facility] 3 HEMOGLOBIN A1C HGA1C, GLYCO MICROALBUMIN, QN (URINE) CREATININE, (U-R) THYROID STIMULATION HORMONE(TSH) 2022 PSA, TOTAL, SCREENING MEDICARE ONLY Admin influenza virus vac FLU VACC 4 HUNTER 0.5mL DOSAGE ROUTINE VENIPUNCTURE IL OFFICE OZEAH-OWM-OMWACPHQ BODY MASS INDEX DOCD SYST BP LT 130 MM HG DIAST BP < 80 MM HG Fecal Occult Blood Mdcr Pt inelig neg scrn depres FALL RISK ASSESSMENT DOC'D PRES/ABSN URINE INCON ASSESS OFFICE EUWSB-UIH-WFBQTCZU BODY MASS INDEX DOCD SYST BP LT 130 MM HG DIAST BP < 80 MM HG Admin influenza virus vac FLU VACC PRSV FREE INC ANTIG CBC, INC PLATELETS AND DIFFERENTIAL COMPREHEN METABOLIC PANEL [facility] 2 HEMOGLOBIN A1C HGA1C, GLYCO ROUTINE VENIPUNCTURE OFFICE SHBIL-PVT-WESPXMHJ BODY MASS INDEX DOCD SYST BP LT 130 MM HG DIAST BP < 80 MM HG Pt inelig neg scrn depres CBC, INC PLATELETS AND DIFFERENTIAL COMPREHEN METABOLIC PANEL [facility] 2 CREATINE KINASE, TOTAL (CPK,CK) 022 HEMOGLOBIN A1C HGA1C, GLYCO LIPID PANEL MICROALBUMIN, QN (URINE) CREATININE, (U-R) PSA, TOTAL, SCREENING MEDICARE ONLY THYROID STIMULATION HORMONE(TSH) 2021 ROUTINE VENIPUNCTURE OFFICE NCMKP-SNW-XEKWOWOW BODY MASS INDEX DOCD SYST BP GE 130 - 139MM HG DIAST BP < 80 MM HG Admin influenza virus vac FLU VACC 4 HUNTER 0.5mL DOSAGE PNEUMOVAX ADM MEDICARE PNEUMOVAX IMMUNIZATION CBC, INC PLATELETS AND DIFFERENTIAL COMPREHEN METABOLIC PANEL [facility] 1 LIPID PANEL THYROID STIMULATION HORMONE(TSH) ROUTINE VENIPUNCTURE OFFICE LCWFL-JJT-YDOBGZHZ BODY MASS INDEX DOCD SYST BP LT 130 MM HG DIAST BP < 80 MM HG DSCHRG MED/CURRENT MED MERGE CBC, INC PLATELETS AND DIFFERENTIAL ROUTINE VENIPUNCTURE Apr-07-2021 OFFICE NAVTO-MMI-XWBQFSAB BODY MASS INDEX DOCD SYST BP LT [...] FLU VACC 4 HUNTER 0.5mL DOSAGE OFFICE GWMJX-UCO-VUYJ-MED BODY MASS INDEX DOCD SYST BP GE [...] Diagnoses Date Provider Providers Copied on Encounter [facility] [place], [address], [place], [place], [address] , [place] tel: [phone] [facility] No Information 5 Hunter Russell. [address], [place], [id number] , [place]. tel: [phone] [facility] [place], [address], [place], [place], [address] , [place] tel:[phone] [facility] No Information 5 Marshall López. [address] [place] [address], [address], . tel: [phone] OFFICE ESAZG-YGF-HU PANDED [facility], [address], [place], [place], [address] , tel: [phone] [facility] ER f/u (chief complaint) Body mass index [BMI] 34.0-34.9, adultPrimary osteoarthritis of left hip 5 Reyes Aaliyah. [address] [place] [address], [id number] , [place]. tel: [phone] Referring Provider: Yvonne Ibarra, [address] [place] [address], [address]. tel:[phone] [facility], [address], [place], [place], [address] , [place] tel: [phone] [facility] No Information 5 Hunter Russell. [address] [place] [address], [id number] , [place]. tel: [phone] [facility], [address], [place], [place], [address] , tel: [phone] [facility] No Information 5 Stephanie Bergman. [address] [place] [address], [id number] , . tel: [phone] Referring Provider: Rene Olivares, [address] [place] [address], [address]. tel:[phone] OFFICE EICLJ-RZL-JR TAILED [facility], [address], [place], [place], [address] , tel: [phone] [facility] 3 month (chief complaint)C hronic Conditions (chief complaint) Body mass index [BMI] 34.0-34.9, adultHypertensiv e heart disease with heart failureChronic diastolic (congestive) heart failureParoxysma l atrial fibrillationAthe rosclerotic heart disease of [place] coronary artery without angina pectorisPrediabe tesPain in left hipScreening for prostate cancer 5 [facility]. [address] [place] [address], [address], . tel: [phone] Ewa Rea.Referr ing Provider: Yvonne Ibarra, [address] [place] [address], [address]. tel:[phone] OFFICE QTUSV-HWQ-TV [facility], [address], [place], [place], [address] , tel: [phone] [facility] 3 month (chief complaint)C hronic Conditions (chief complaint)c hronic conditions (chief complaint) Body mass index [BMI] 34.0-34.9, adultHypertensiv e heart disease with heart failureParoxysma l atrial fibrillationPred iabetesAtheroscl erotic heart disease of [place] coronary artery without angina pectorisChronic diastolic (congestive) heart failureOther nonthrombocytope lis purpuraSleep troubleNocturia 5 Marshall [facility]. [address] [place] [address], [address], . tel: [phone] Referring Provider: Yvonne Ibarra, [address] [place] [address], [address]. tel:[phone] [facility], [address], [place], [place], [address] , [place] tel: [phone] [facility] No Information 5 Eric Fischer. [address] [place] [address], [id number] , [place]. tel: [phone] [facility], [address], [place], [place], [address] , tel: [phone] [facility] No Information 4 Stephanie Bucion. [address], [id number] , . tel: [phone] Referring Provider: Aaliyah Reyes, [address] [place] [address], [address]. tel:[phone] OFFICE RTHAQ-ISB-FJ [facility], [address], [place], [place], [address] , [place] tel: [phone] [facility] 1 Week follow up (chief complaint)C hronic Conditions (chief complaint)c hronic conditions (chief complaint) Hypertensive heart disease with heart failureChronic diastolic (congestive) heart failurePolycythe dorina 4 Eric Fischer. [address] [place] [address], [id number] , [place]. tel:[phone] Ewa Rea.Referr ing Provider: Yvonne Ibarra, [address] [place] [address], [address]. tel:[phone] [facility], [address], [place], [place], [address] , [place] tel: [phone] [facility] No Information 4 Stephanie Bucion. [address], [id number] , . tel: [phone] Referring Provider: Yvonne Ibarra, [address] [place] [address], [address]. [phone] OFFICE ABHCQ-HLJ-BG [facility], [address], [place], [place], [address] , [place] tel: [phone] [facility] 6 month appt (chief complaint) Hypertensive heart disease with heart failureChronic diastolic (congestive) heart failurePrediabet esParoxysmal atrial fibrillationBody mass index [BMI] 33.0-33.9, adult 4 Hunter Russell. [address] [place] [address] [place], [id number] , [place]. tel:[phone] Ewa Rea.Referr ing Provider: Yvonne Ibarra, [address] [place] [address], [address]. [phone] [facility], [address], [place], [place], [address] , tel: [phone] [facility] No Information 4 Stephanie Bucion. [address], [id number] , [place]. tel: [phone] Referring Provider: Yvonne Ibarra, [address] [place] [address], [address]. tel:[phone] [facility], [address], [place], [place], [address] , tel: [phone] [facility] No Information 4 Hunter Russell. [address] [place] [address], [id number] , [place]. tel: [phone] [facility], [facility], [place], [place], [address] , [place] tel: [phone] [facility] No Information 4 Stephanie Bucion. [address] [place] [address], [id number] , [place]. tel: [phone] Referring Provider: Yvonne Ibarra, [address] [place] [address], [address]. tel:[phone] OFFICE WDLMM-KMY-CW [facility], [address], [place], [place], [address] , [place] tel: [phone] [facility] 6 mo appt (chief complaint)c hronic conditions (chief complaint)C hronic Conditions (chief complaint) Body mass index [BMI] 34.0-34.9, adultHypertensiv e heart disease with heart failureChronic diastolic (congestive) heart failurePrediabet esParoxysmal atrial fibrillationOthe r nonthrombocytope lis purpuraOther fecal abnormalitiesAth erosclerotic heart disease of [place] coronary artery without angina pectorisSpinal stenosis, lumbar region without neurogenic claudicationPain in left hip 4 Hunter Russell. [address] [place] [address], [id number] , [place]. tel:[phone] Specialist: Ewa Rea, [address] [facility] [address], [place], [address]. [phone] ng Provider: Yvonne Ibarra, [address] [place] [address], [address]. [phone] [facility], [address], [place], [address] , [place] tel: [phone] [facility] No Information 3 Hunter Russell. [address] [place] [address], [id number] , [place]. tel:[phone] [facility], [address], [place], [place], [address] , [place] tel: [phone] [facility] No Information 3 Stephanie Bucion. [address], [id number] , [place]. tel: [phone] Referring Provider: Yvonne Ibarra, [address] [place] [address], [address]. [phone] OFFICE YUHWN-WUB-OM [facility], [address], [place], [place], [address] , [place] tel: [phone] [facility] 6 month appt (chief complaint)O ther (chief complaint)C hronic Conditions (chief complaint)c hronic conditions (chief complaint) Hypertensive heart disease with heart failureChronic diastolic (congestive) heart failureParoxysma l atrial fibrillationPred iabetesOther nonthrombocytope lis purpuraBody mass index [BMI] 35.0-35.9, adult 3 Hunter Russell. [address] [place] [address], [id number] , . tel: [phone] Referring Provider: Yvonne Ibarra, [address] [place] [address], [address]. tel:[phone] [facility], [address], [place], [place], [address] , [place] tel: [phone] [facility] No Information 3 Hunter Russell. [address] [place] [address], [id number] , [place]. tel: [phone] [facility], [address], [place], [place], [address] , tel: [phone] [facility] Encounter for screening for malignant neoplasm of colon 3 Hunter Russell. [address] [place] [address], [id number] , [place]. tel: [phone] Referring Provider: Yvonne Ibarra, [address] [place] [address], [address]. tel:[phone] [facility], [address], [place], [address] , [place] tel: [phone] [facility] No Information 3 Hunter Russell. [address] [place] [address], [id number] , [place]. tel: [phone] OFFICE LSCQM-YEA-QU [facility], [address], [place], [place], [address] , [place] tel: [phone] [facility] Chronic Conditions (chief complaint)P atient encounter (chief complaint) Body mass index [BMI] 35.0-35.9, adultHypertensiv e heart disease with heart failureChronic diastolic (congestive) heart failureAtheroscl erotic heart disease of [place] coronary artery without angina pectorisSpinal stenosis, lumbar region without neurogenic claudicationParo xysmal atrial fibrillationMorb id (severe) obesity due to excess caloriesScreenin g for colon cancerOther fecal abnormalities 3 Eric Fischer. [address] [place] [address], [id number] , [place]. [phone] Referring Provider: Yvonne Ibarra, [address] [place] [address], [address]. tel:[phone] [facility]ICE [facility], [address], [place], [place], [address] , [place] tel: [phone] [facility] 6 month (chief complaint)C hronic Conditions (chief complaint)c hronic conditions (chief complaint) Body mass index [BMI] 35.0-35.9, adultHypertensiv e heart disease with heart failureChronic diastolic (congestive) heart failureParoxysma l atrial fibrillationMorb id (severe) obesity due to excess caloriesAtherosc lerotic heart disease of [place] coronary artery without angina pectorisSpinal stenosis, lumbar region without neurogenic claudicationPosi tive colorectal cancer screening using Cologuard testPrediabetes 2 Marshall Rene. [address] [place] [address], [address], [place]. [phone] Referring Provider: Yvonne Ibarra, [address] [place] [address], [address]. tel:[phone] OFFICE [facility], [address], [place], [place], [address] , [place] tel: [phone] [facility] 6 month appt (chief complaint)O ther (chief complaint)C hronic Conditions (chief complaint) Paroxysmal atrial fibrillationMorb id (severe) obesity due to excess caloriesChronic heart failure with preserved ejection fractionSpinal stenosis, lumbar region without neurogenic claudicationPosi tive colorectal cancer screening using Cologuard testHypertensive heart disease with heart failureBody mass index [BMI] 35.0-35.9, adult Apr-2 2 Hunter Russell. [address] [place] [address], [id number] , [place]. tel: [phone] Referring Provider: Yvonne Ibarra, [address] [place] [address], [place], [address]. tel:[phone] OFFICE NQPRA-NSW-QYWVU Medicine [facility], [address], [place], [place], [address] , tel: [phone] [facility] skin lesion (chief complaint)C hronic Conditions (chief complaint) Body mass index [BMI] 35.0-35.9, adultMorbid (severe) obesity due to excess caloriesParoxysm al atrial fibrillationChro lis heart failure with preserved ejection fractionSpinal stenosis, lumbar region without neurogenic claudicationPosi tive colorectal cancer screening using Cologuard testSkin lesion Jul-0 1 Eric Fischer. [address] [place] [address], [id number] , [place]. tel: [phone] Referring Provider: Yvonne Ibarra, [address] [place] [address], [address]. tel:[phone] OFFICE WBPPE-MFA-HOWVU Medicine [facility], [address], [place], [place], [address] , tel: [phone] [facility] Chronic Conditions (chief complaint)b leeding gums (chief complaint) Body mass index (BMI) 35.0-35.9, adultParoxysmal atrial fibrillationChro lis heart failure with preserved ejection fractionPositive colorectal cancer screening using Cologuard testMorbid (severe) obesity due to excess caloriesSpinal stenosis, lumbar region without neurogenic claudication Jan-0 1 Eric Fischer. [address] [place] [address], [id number] , [place]. tel: [phone] Referring Provider: Yvonne Ibarra, [address] [place] [address], [place], [address]. tel:[phone] [facility], [address], [place], [place], [address] , tel: [phone] [facility] Positive colorectal cancer screening using Cologuard test 0 Hunter Russell. [address] [place] [address], [id number] , . tel: [phone] [facility], [address], [place], [place], [address] , tel: [phone] [facility] Paroxysmal atrial fibrillation 0 Hunter Russell. [address] [place] [address], [id number] , . tel: [phone] OFFICE QOYXN-VDC-FW MP-MED [facility], [address], [place], [place], [address] , tel: [phone] [facility] Chronic Conditions (chief complaint) Essential (primary) hypertensionSpin al stenosis, lumbar region without neurogenic claudicationParo xysmal atrial fibrillationMorb id (severe) obesity due to excess caloriesBody mass index (BMI) 36.0-36.9, adult 0 Hunter Russell. [address] [place] [address], [id number] , . [phone] Referring Provider: Yvonne Ibarra, [address] [place] [address], [address]. tel:[phone] Family History Family Member Type Diagnosis Age [...] doses, administered 21 days apart [facility] ; Source: Other Provider Pfizer-BioNTech COVID19 Vaccine, 0.3mL per dose, 2 doses, administered 21 days apart [facility] ; Source: Other Provider Fluzone Quad, split virus, 0.5mL dosage administered Source: New Immuniza tion Record Payers Payer name Insurance type Covered republican ID Authoriza tion(s) Aviir MB [id number] Aviir MB [id number] Aviir MB [id number] Aviir MB [id number] Aviir MB [id number] Social History Type Description Quantity Date Captured [...] and counseling completed Referral Referred To: 2022 [employer]
[address], [phone] Ordered: XR pelvis and left hip, 2 views Appointment date/timeframe: 07/08/2024 ordered Referral Referred To: Dr. Masters Ordered: Referrals: Dermatology. Dr. Masters. Evaluation/diagnostic/treatment - Level 3 ordered Referral Referred To: Igor Dye MD [address] [place] [address], [phone] Ordered: Referrals: Gastroenterology. Igor Dye MD. Evaluation/diagnostic/treatment - Level 3 Appointment date/timeframe: 02/17/2021 ordered Referral Referred To: Seth Landon MD [address] [facility]
[address], [phone] Ordered: Referrals: Cardiology. Seth Landon MD. Evaluation/diagnostic/treatment - Level 3 Appointment date/timeframe: 10/08/2020 ordered Referral Ordered: EKG (ELECTROCARDIOGRAM) ordered Referral Referred To: [address] [facility] [place], [place], [id number] Ordered: 24 hour Holter monitoring with interpretation and report by physician Appointment date/timeframe: 10/08/2020 ordered History Of Present Illness Encounter Date Complaint History Of Prese nt Illness ER f/u Patient was eval uated at [facility] with complaints of severe left hip [...] 3 month Chronic Conditions *See Chronic Conditions [facility] Chronic Conditions *See Chronic Conditions [facility] chronic conditions *See Chronic Conditions [facility] 3 month Reports that he has trouble falling back asleep after he has to get up 1-3 times at night to urinate.He has not tried taking anything sxep-auh-uuthyfm.We discussed the potential for BPH and considered [...] ablation 01/13/25 Chronic Conditions *See Chronic Conditions [facility] 1 Week follow up past appointmen luis Tolbert completed 09/11/2024 [address] 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 This has been normal previously. He denies tobacco use and is not taking any form of testosterone supplementation.He is not interested in a sleep study at this time.denies daytime fatigue chronic conditions *See Chronic Conditions [facility] 6 month appt pt due for:Adv c are planning - pt does not have LW/POA - pt interested on information packetRecent visits:Dr Rea - appt:ECHO - tomorrowVaccinations due:TD/TDAP - pt denies recentRSV - pt has not receivedFlu [facility] [place] [facility] [place] - PfizerOutstanding referrals: n/a-CHFpt denies swelling of [...] LW/Sumeet Kruger [facility] - December 2023Vaccinations due:TD/TDAP - pt [...] Rea Related to Atherosclerotic heart disease of [place] coronary artery without angina pectoris Yes I [...] in the 140s consistently please 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 No more than 10 mg. Okay to start off at 3 mg.If you are still having issues with the urinating I would suggest checking your PSA and considering tamsulosin. Related to Sleep trouble Continue on current medication and follow with cardiology. Related to Atherosclerotic heart disease of [place] coronary artery without angina pectoris Continue on [...] heart failure Disease process continue with the rrent medicationkeep scheduled follow up with cardiologycall the office and discuss switching cardiologists to Dr. Harris Related to Paroxysmal atrial fibrillation levels will be checked Related t o Prediabetes weigh yourself daily avoid: salty foods, fried foods, processed foods, adding salt to your foods.It you notice a weight gain of 1-2 pounds in 24 hours or 3-5 pounds in 5 days call our officealso keep an eye on the swelling in your legs and your breathing. Notify us of any changes. Related to Chronic diastolic (congestive) heart failure your blood pressure is a little highI [...] you a sl ip to go to [facility] and look at the hip closerI will call you with the resultspending results we can discuss therapy or injections in the office Related to Pain in left hip see below Related to Spina l stenosis, lumbar region without neurogenic claudication keep scheduled follo w up with Cardiology Related to Atherosclerotic heart disease of [place] coronary artery without angina pectoris I will [...] scheduled Related to Atherosclerotic heart disease of [place] coronary artery without angina pectoris Continue to [...] medication. Related to Atherosclerotic heart disease of [place] coronary artery without angina pectoris We discussed [...] Hypertensive heart disease with heart failure [facility] Path [phone] ; [employer] [phone] ; Simple Fill [phone] given today Related to Paroxysmal atrial fibrillation [...] to Paroxysmal atrial fibrillation Continue with Doe jnoes for balance and support Related to Spinal [...]
[2025-07-02] VITALS (15 sets, daily range): BP systolic 104–152; BP diastolic 60–78; PULSE 62–86; RESP 10–18; TEMP 36.1–36.8; O2SAT 95–100; BMI 34.1
--- NOTE | ~2025-07-02 | XR_ITS ---
EXAMINATION: XR hip LT min 2V DATE: 07/02/2025 15:06 INDICATION: Postoperative evaluation following left total hip arthroplasty TECHNIQUE: Anteroposterior and lateral views of the left hip were obtained. COMPARISON: 05/22/2025 FINDINGS: Interval placement of a left total hip arthroplasty which appears well seated in near anatomic alignment. Expected subcutaneous gas in the postoperative bed. No fractures identified. Severe lower lumbar spondylosis. IMPRESSION: 1. Left total hip arthroplasty, negative for postoperative purposes. Reviewed, dictated and finalized at location A.
--- OUTSIDE RECORDS SUMMARY | 2025-07-02 01:58 | XMS_ITS | Clinical Summary ---
Author Organization [facility] Office Center Address [address] [place] [address] Care Team Providers Care Coal Conveyor Operator Name Role Phone Yvonne Harrison Primary Care Provider [phone] Allergies No known active allergies Medications rivaroxaban [...] Description 06/19/2025 10:00 AM CDT Office Visit [facility] Cardiology [address] [place] [phone] Ewa Rea MD Chronic systolic heart failure (HCC) (Primary Dx); Adverse effect of amiodarone, initial encounter; Hx of CABG; Longstanding persistent atrial fibrillation (HCC) 06/18/2025 Telephone [facility] Cardiology [address] [place] [phone] Ewa Rea MD Cardiac Clearance Request 04/18/2025 Orders Only [facility] Cardiology [address] [place] [phone] ProviderShira MD from Last 3 Months [...] on file 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
--- OUTSIDE RECORDS SUMMARY | 2025-07-02 01:58 | XMS_ITS | Encounter Summary ---
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 Historical Provider Final Res ult documented in this encounter Visit Diagnoses Not on filedocumented in this encounter Care Teams Quality Control Inspector Heading Relationship Specialty Start Date End Date Yvonne Harrison DO PCP - General 07/21/20 documented as of this encounter
--- OUTSIDE RECORDS SUMMARY | 2025-07-02 01:58 | XMS_ITS | Clinical Summary ---
Author Organization [facility] Address [address] [place] [address] Care Team Providers Care Squeezer Operator Name Role Phone Ewa Rea MD Unavailable [phone] Yvonne Harrison DO Primary Care Provider [phone] Social History Tobacco Use Types Packs/Day Years [...] complete this topic Insurance [employer] Care Teams Squeezer Operator Relationship Specialty Start Date End Date Yvonne Harrison DO [facility] [place] [phone] PCP - General INTERNAL MEDICINE 09/12/24 Ewa Rea MD [address] [place] [id number] INTERVENTIONAL CARDIOLOGY 09/10/24
--- OUTSIDE RECORDS SUMMARY | 2025-07-02 01:58 | XMS_ITS | Encounter Summary ---
Author Organization 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
--- NOTE | 2025-07-02 07:13 | WPDHPUPDATE1 ---
History and Physical Update Update Date/Time: 07/02/25 07:13 History and Physical has been reviewed, including an updated exam of the patient. There are NO changes in the patient's condition. Risks, benefits, and alternatives have been discussed and questions answered. Patient agrees to proceed with procedure.
[2025-07-02] MEDS: LACTATED RINGERS 1,000 ML 30 ML IV CONT ×2 (10:00→14:52)
[2025-07-02] MEDS: ACETAMINOPHEN 500 MG TABLET 1000 MG PO (10:00)
[2025-07-02] MEDS: TRANEXAMIC ACID 1,000MG/ISO100 1,000 MG/100 ML BAG 200 MG IVPB (10:00)
[2025-07-02 10:30] LABS: INR 1.1; Prothrombin Time 14.0 Seconds (11.1-14.7)
[2025-07-02 10:31] LABS: Partial Thromboplastin Time 32.1 Seconds (22.3-36.8)
--- NOTE | 2025-07-02 10:52 | WPDANESEPPF ---
Anes - Initial Pre Proc Eval Procedure: Operation Date: 07/02/25 11:00 Proposed Procedures p Left Total Hip Arthroplasty - Desmond Fernández MD Date/Time: 07/02/25 10:52 Surgeon: Desmond Fernández MD Pre Op Diagnosis: left hip DJD Patient Data Age: 69 Gender: M Height: 1.73 m Weight: 101.9 kg Last Vital Signs Temp 36.6 C 07/02/25 10:16 Pulse 62 07/02/25 10:16 Resp 18 06/25/25 08:43 BP 152/76 H 07/02/25 10:16 Pulse Ox 95 07/02/25 10:16 O2 Del Method Room Air 07/02/25 10:16 Allergies Allergy/AdvReac Type Severity Reaction Status Date / Time simvastatin AdvReac Intermediate Back Pain Verified 07/02/25 10:15 Home Medications ?Medication ?Instructions ?Recorded ?Confirmed ?Type atorvastatin 20 mg tablet 20 mg PO DAILY 11/21/20 07/02/25 History carvedilol 25 mg tablet 25 mg PO Q12H 11/21/20 07/02/25 History ezetimibe 10 mg tablet 10 mg PO DAILY 11/21/20 07/02/25 History rivaroxaban 20 mg tablet (Xarelto) 20 mg PO DAILY 11/21/20 07/02/25 History acetaminophen 500 mg capsule 500 mg PO Q6H PRN pain 05/22/25 07/02/25 History amiodarone 200 mg tablet 200 mg PO DAILY 05/22/25 07/02/25 History empagliflozin 10 mg tablet 10 mg PO DAILY 05/22/25 07/02/25 History (Jardiance) hydralazine 50 mg tablet 50 mg PO TID 05/22/25 07/02/25 History tramadol 50 mg tablet 50 mg PO Q6H PRN pain 05/22/25 07/02/25 History sacubitril 97 mg-valsartan 103 mg 1 tablet PO BID 06/05/25 07/02/25 History tablet (Entresto) chlorhexidine gluconate 4 % 1 applic topical ONCE #237 mL 06/20/25 07/02/25 Rx topical liquid (Hibiclens) Laboratory Tests 07/02/25 10:06 PT 14.0 Seconds (11.1-14.7) INR 1.1 APTT 32.1 Seconds (22.3-36.8) Patient hx anesthesia problems: none Family hx anesthesia problems: none Results Review: All pre-operative results and documents have been reviewed as part of the pre-operative evaluation. [facility] Past Medical History Medical History (Updated 07/02/25 @ 10:53 by Maikel Yo MD) CAD (coronary artery disease) Obesity Coronary artery disease involving coronary bypass graft Chronic anticoagulation PAF (paroxysmal atrial fibrillation) Surgical History Surgical History (Updated 07/02/25 @ 10:53 by Maikel Yo MD) Hx of CABG S/P CABG x 3 2008 Family History Family History Father Family history of lung cancer, Onset Age: 75 Mother Patient's mother is Social History Social History Smoking packs per day: 0.25 Smoking cigarettes per day: 5.0 Years smoked: 7 Smoking pack-years: 1.75 Smoking status: Former smoker Tobacco type: cigarettes Second hand tobacco smoke exposure: No Smoking end date: 10/09/07 Additional smoking assessment comments: DENIES ANY FORM OF TOBACCO USE Alcohol intake: never Substance use: never Living arrangements: with family Occupation/Education: retired Gender identity (if verbalized by the patient): Male Spiritual care concerns: No Anes - Eval Final PreProcedure Day of Procedure 07/02/25 10:52 Patient weight: obese Heart: regular rate and rhythm Lungs: clear to auscultation Airway: Mallampati scale class II Neurological: alert and oriented Last oral intake: >/= 8 hours ASA classification: III Emergent: no Anesthetic plan: proceed Anesthesia type and monitoring: general ETT and standard monitoring Results Review: All pre-operative results and documents have been reviewed as part of the pre-operative evaluation. Informed Consent: The patient's anesthetic plan and its attendant risks and benefits were discussed with the patient/family/POA. Questions were solicited and answers provided to the satisfaction of the patient/family/POA.
[2025-07-02] MEDS: SODIUM CHLORIDE 0.9% IV 37.7 ML, MORPHINE SULFATE INJ (*CRX) 2 MG, ROPivacaine HCL 1% 2... INFILTRATE (11:40)
[2025-07-02] MEDS: ceFAZolin 2 GM in SODIUM CHLORIDE 0.9% IV 50 ML 100 ML IVPB ×3 (11:40→21:09)
[2025-07-02] MEDS: TRANEXAMIC ACID 1,000 MG/10 ML AMPUL 1000 MG IV PUSH (13:56)
--- NOTE | 2025-07-02 14:58 | W.PM.PROC2 ---
Procedure Note - Detailed Date of Procedure 07/02/25 Pre-op Diagnosis left hip DJD Post-op Diagnosis Same Procedure Performed L KENYA Surgeon Desmond Fernández MD Anesthesia General Description of Procedure THE PATIENT WAS TAKEN TO THE OPERATING ROOM IN STABLE CONDITION AND WAS PLACED IN THE LATERAL DECUBITUS AND THE LEFT LOWER EXTREMITY WAS PREPPED AND DRAPED IN THE STERILE FASHION. INCISION WAS MADE IN THE POSTERIOR LATERAL SIDE OF THE HIP, DOWN TO THE FASCIA LAYER. THE FASCIA WAS INCISED. THE HIP WAS EXPOSED. THE SHORT EXTERNAL ROTATORS WERE EXPOSED. THE SCIATIC NERVE WAS IDENTIFIED. INCISION WAS MADE THROUGH THE SHORT EXTERNAL ROTATORS AND THE CAPSULE OF THE HIP JOINT. THE HIP WAS DISLOCATED. AN OSTEOTOMY WAS MADE TO THE FEMORAL NECK ABOUT 1 CM PROXIMAL TO THE LESSER TROCHANTER. THE ACETABULUM WAS EXPOSED. THERE WAS SEVERE DJD SEEN. BEGINNING WITH A 48 REAMER THE ACETABULUM WAS REAMED TO 59 MM. A 60 MM TRIAL WAS PLACED IN 35 DEG OF ABDUCTION AND ANTEVERSION WAS IN ALIGNMENT WITH THE TRANS ACETABULAR LIGAMENT. THE FIT WAS EXCELLENT. THE TRIAL WAS REMOVED. A 60 MM BIOMET G7 COMPONENT WAS THEN TAPPED IN TO PLACE IN 35 DEG OF ABDUCTION AND ANTEVERSION IN ALIGNMENT WITH THE TRANSVERSE ACETABULAR LIGAMENT. THE FIT WAS EXCELLENT. THE ACETABULAR LINER WAS PLACED AND CHECKED FOR STABILITY. NEXT THE FEMUR WAS PREPARED WITH INITIAL CANAL FINDER THEN SEQUENTIAL BROACHING WITH A TAPERLOC HIP SYSTEM, UNTIL A 15 BROACH FIT WELL IN 15 OF ANTEVERSION. A +6 HIGH OFFSET NECK WITH 36 MM HEAD TRIAL WAS PLACED. THE SHUCK TEST WAS EXCELLENT AND THE STABILITY IN FLEXION AND ROTATION WAS EXCELLENT. LEG LENGTHS WERE GROSSLY EQUAL. TRIALS WERE REMOVED. A BIOMET TAPERLOC 15 STEM WAS PLACED WITH A HIGH OFFSET NECK THE FIT WAS EXCELLENT IN 15 DEG OF ANTEVERSION. A +6 CERAMIC 36 MM FEMORAL CERAMIC HEAD WAS PLACED. THE HIP WAS TRIALED AND THE STABILITY WAS EXCELLENT WERE THE LEG LENGTHS AND THE SHUCK TEST. THE WOUND WAS IRRIGATED WITH STERILE BETADINE AND WATER FOR 3 MIN. THEN WASHED AGAIN. THE CAPSULE AND THE EXTERNAL ROTATORS WERE APPROXIMATED WITH NUMBER 1 VICRYL. THE FASCIA WITH No 2 QUIL AND THE SUB CUTANEOUS LAYER WITH 2-0 ABSORBABLE SUTURE WITH A RUNNING 3-0 SUBCUTICULAR LAYER WELL. DERMABOND WAS PLACED AND STERILE DRESSING WAS APPLIED. PATIENT WAS PLACED BACK ON TO THE SUPINE POSITION AND WAS EXTUBATED Estimated Blood Loss 750 Complications No immediate complications Condition Stable Disposition PACU
[2025-07-02 15:02] LABS: Hematocrit 41.7 % (42.0-52.0); Hemoglobin 13.7 g/dL (14.0-18.0); Mean Corpuscular HGB Conc 32.9 g/dl (32-36); Mean Corpuscular Hemoglobin 31.7 pg (26-34); Mean Corpuscular Volume 96.5 fl (80-100); Platelet Count Result 177 k/mm3 (150-375); Red Blood Count 4.32 M/mm3 (4.6-6.20); White Blood Count 20.0 K/mm3 (4.5-10.0)
[2025-07-02] MEDS: HYDROmorphone HCL INJ (*CRX) 1 MG/ML SYR 0.5 MG IV PUSH ×2 (15:09→15:20)
--- NOTE | 2025-07-02 16:20 | ADMGEN ---
This patient, Darwin Fuentes, was admitted to Medical Room 246-01. Patient/family oriented to hospital policies and general routines including ID bracelet, bed and alarms, visiting hours, pain management, procedures, bathroom and other care routines, personal items, smoking policy, room service/diet, and visiting hours. Information on how to activate the Rapid Response Team has been discussed. Patient/Family are encouraged to report perceived risks to care and to ask questions if they do not understand what they are told or what they should do.
[2025-07-02] MEDS: KETOROLAC 15 MG/ML VIAL (*BKC) IV PUSH (17:09)
[2025-07-02] MEDS: SENNA/DOCUSATE SODIUM TABLET 2 TAB PO (17:15)
[2025-07-02] MEDS: RIVAROXABAN 20 MG TABLET PO (17:15)
[2025-07-02] MEDS: SACUBITRIL/VALSARTAN 97-103 MG TABLET 1 TAB PO (17:15)
[2025-07-02] MEDS: oxyCODONE/ACETAMINOPHEN (*CRX) 5-325 MG TABLET 1 TABLET PO (18:16)
[2025-07-02] MEDS: oxyCODONE/ACETAMINOPHEN (*CRX) 10-325 MG TABLET 1 TAB PO (20:16)
[2025-07-02] MEDS: FAMOTIDINE 20 MG TABLET PO (20:18)
[2025-07-02] MEDS: diazePAM (*CRX) 5 MG TABLET PO (22:43)
[2025-07-03] VITALS (8 sets, daily range): BP systolic 113–135; BP diastolic 56–63; PULSE 67–74; RESP 16–18; TEMP 36.2–36.6; O2SAT 94–98
[2025-07-03] MEDS: KETOROLAC 15 MG/ML VIAL (*BKC) IV PUSH ×2 (05:10→13:18)
[2025-07-03] MEDS: ceFAZolin 2 GM in SODIUM CHLORIDE 0.9% IV 50 ML 100 ML IVPB (05:11)
[2025-07-03 05:35] LABS: Hematocrit 38.8 % (42.0-52.0); Hemoglobin 12.6 g/dL (14.0-18.0); Immature Granulocyte Percent A 0.6 % (0-0.5); Lymphocytes Absolute Auto 0.99 K/mm3 (0.9-3.2); Mean Corpuscular HGB Conc 32.5 g/dl (32-36); Mean Corpuscular Hemoglobin 31.9 pg (26-34); Mean Corpuscular Volume 98.2 fl (80-100); Nucleated Red Blood Cells Absolute Auto 0.000 K/mm3 (0.0-0.012); Nucleated Red Blood Cells Perc 0.0 % (0.0-0.2); Platelet Count Result 178 k/mm3 (150-375); Red Blood Count 3.95 M/mm3 (4.6-6.20); White Blood Count 15.5 K/mm3 (4.5-10.0)
[2025-07-03 05:56] LABS: Anion Gap 5 mmol/L (4-12); Blood Urea Nitrogen 26 mg/dL (9-20); Calcium 8.2 mg/dL (8.4-10.2); Carbon Dioxide 28 mmol/L (22-30); Chloride 101 mmol/L (98-107); Estimated CRCL calculation 67 ml/min; Estimated Glomerular Filt Rate > 60; Glucose 132 mg/dL (65-110); Potassium 4.0 mmol/L (3.4-5.0); Sodium 134 mmol/L (137-145)
[2025-07-03] MEDS: SACUBITRIL/VALSARTAN 97-103 MG TABLET 1 TAB PO ×2 (08:37→16:15)
[2025-07-03] MEDS: EMPAGLIFLOZIN 10 MG TABLET PO (08:37)
[2025-07-03] MEDS: FAMOTIDINE 20 MG TABLET PO (08:37)
[2025-07-03] MEDS: EZETIMIBE 10 MG TABLET PO (08:39)
[2025-07-03] MEDS: AMIODARONE HCL 200 MG TABLET PO (08:39)
[2025-07-03] MEDS: ATORVASTATIN 20 MG TABLET PO (08:39)
[2025-07-03] MEDS: oxyCODONE/ACETAMINOPHEN (*CRX) 5-325 MG TABLET 1 TABLET PO (08:40)
--- NOTE | 2025-07-03 09:35 | PM.PNORT ---
Progress Note: A&P Assessment and Plan (1) S/P total hip arthroplasty: Qualifiers: Laterality: left Qualified Code(s): Z96.642 - Presence of left artificial hip joint Code(s): Z96.649 - Presence of unspecified artificial hip joint Status: Acute Assessment and Plan: POD #1 : Left KENYA Continue PT/OT. WBAT. Walker. HIGH FALL RISK. Continue pain control. Ice Hip. Protect skin. DVT prophylaxis with resumed home dose of Xarelto. SCDs. Incentive Spirometry Use reviewed. Monitor Dressing. Change prior to discharge. Bowel Regimen. Dispo: Home with Home Health pending progress with PT/OT Plan Reviewed history, exam, radiographs and current labs with attending MD and covering surgeon, Dr. Fernández, who agrees with current plan as indicated above. No further recommendations from Dr. Fernández at this time. Time Spent With Patient Time with patient: less than 15 minutes Subjective Subjective Date/Time Seen: 07/03/ 09:35 Post Op day: 1 Interval history: POD #1: Left KENYA Patient doing well. Pain well controlled. Hopeful for d/c today. No new concerns. Review of Systems Constitutional: Constitutional: Denies chills, Denies fatigue, Denies fever(s), Denies night sweats and Denies weakness Cardiovascular: Cardiovascular: Denies chest pain, Denies lightheadedness, Denies palpitations and Denies dyspnea Respiratory: Respiratory: Denies cough, Denies dyspnea and Denies wheezing Gastrointestinal: Gastrointestinal: Denies abdominal pain, Denies diarrhea, Denies nausea and Denies vomiting Musculoskeletal: Musculoskeletal: Reports arthralgias (left hip ), Reports joint swelling (left hip ) and Denies numbness Neurologic: Denies numbness and Denies weakness Endocrine: Endocrine: Denies fatigue and Denies palpitations Allergic/Immunologic: Allergic/Immunologic: Denies wheezing Exam Const: General: comfortable and no acute distress Orientation/consciousness: patient oriented x3 Limitations: no limitations Resp: Effort & Inspection: normal respiratory effort Cardio: Rate: regular rate Rhythm: regular rhythm GI: Inspection: non-distended Skin: General skin exam: normal color and wounds noted (incision left hip C/D/I ) Wounds: wounds noted (incision left hip C/D/I ) Neuro: General: patient oriented x3 Extrem: Left lower extremity: hip/thigh Details: tenderness Location: of the hip Location: laterally and anteriorly, swelling (thigh soft ) Location: of the hip (lateral. ), abnormal ROM (limitations with internal/external rotation and flexion/extension due to recent surgical intervention ) and other (incision lateral hip c/d/i. ), knee Details: normal to inspection and normal ROM; no tenderness and no swelling, lower leg (Negative Estrellita's Sign ) Details: no edema, ankle (+ankle dorsiflexion/plantarflexion ) Details: normal to inspection, no edema and normal ROM; no tenderness, no swelling and no warmth and foot Details: normal capillary refill, toes with normal ROM, vascular exam Details: dorsalis pedis pulse present and motor-sensory exam light-touch normal in all toes; no tenderness, no ecchymosis and no crepitus Psych: Mental Status: mental status grossly normal Affect: normal affect Objective Data Vital Signs Vital Signs: Vital Signs - 24 hr 07/02/25 10:16 07/02/25 14:52 07/02/25 15:05 Temperature 36.6 C 36.2 C L Pulse Rate 62 67 69 Respiratory Rate 14 10 L Blood Pressure 152/76 H 122/69 104/69 Pulse Oximetry 95 98 100 Oxygen Delivery Room Air Simple Face Mask Simple Face Mask Oxygen Flow Rate 8 8 Fraction of Inspired Oxygen 07/02/25 15:20 07/02/25 15:30 07/02/25 15:45 Temperature Pulse Rate 69 68 68 Respiratory Rate 18 12 12 Blood Pressure 122/69 115/63 120/63 Pulse Oximetry 95 96 96 Oxygen Delivery Room Air Room Air Room Air Oxygen Flow Rate Fraction of Inspired Oxygen 07/02/25 15:57 07/02/25 16:00 07/02/25 16:15 Temperature 36.7 C 36.1 C L Pulse Rate 68 74 68 Respiratory Rate 16 16 16 Blood Pressure 110/61 128/70 118/60 Pulse Oximetry 98 96 96 Oxygen Delivery Room Air Oxygen Flow Rate Fraction of Inspired Oxygen 07/02/25 16:20 07/02/25 17:45 07/02/25 20:00 Temperature 36.2 C L Pulse Rate 68 68 Respiratory Rate 16 16 Blood Pressure 123/61 Pulse Oximetry 96 96 Oxygen Delivery Room Air Room Air Oxygen Flow Rate Fraction of Inspired Oxygen 07/02/25 20:18 07/02/25 20:40 07/02/25 21:45 Temperature 36.8 C Pulse Rate 81 86 84 Respiratory Rate 18 Blood Pressure 132/78 Pulse Oximetry 96 98 Oxygen Delivery Room Air Oxygen Flow Rate Fraction of Inspired Oxygen 21 07/02/25 22:00 07/03/25 01:40 07/03/25 05:45 Temperature 36.7 C 36.6 C 36.6 C Pulse Rate 81 74 69 Respiratory Rate 18 18 18 Blood Pressure 108/68 113/56 L 135/63 Pulse Oximetry 96 98 94 Oxygen Delivery Oxygen Flow Rate Fraction of Inspired Oxygen 07/03/25 06:00 07/03/25 08:02 07/03/25 08:37 Temperature 36.6 C Pulse Rate 72 Respiratory Rate Blood Pressure Pulse Oximetry Oxygen Delivery Room Air Oxygen Flow Rate Fraction of Inspired Oxygen 07/03/25 08:39 Temperature Pulse Rate 72 Respiratory Rate Blood Pressure Pulse Oximetry Oxygen Delivery Oxygen Flow Rate Fraction of Inspired Oxygen Intake/Output Intake/Output: Intake & Output 06/30/25 07/01/25 07/02/25 07/03/25 23:59 23:59 23:59 23:59 Intake Total 790 50 Output Total 1000 Balance 790 -950 Meds/Results Medications: Active Medications Generic Name Dose Route Start Last Admin Trade Name Freq PRN Reason Stop Dose Admin Acetaminophen 500 mg 07/02/25 16:00 Acetaminophen 500 Mg Tablet PO Q6H PRN Pain Rated 1-3 Amiodarone HCl 200 mg 07/03/25 09:00 07/03/25 08:39 Amiodarone Hcl 200 Mg Tablet PO 200 mg DAILY FLAQUITA Administration Atorvastatin Calcium 20 mg 07/03/25 09:00 07/03/25 08:39 Atorvastatin 20 Mg Tablet PO 20 mg DAILY FLAQUITA Administration Benzocaine 1 lozenge 07/02/25 17:01 Benzocaine/Menthol (*Bkc) 18 Ea Lozenge PO PRN PRN Sore Throat Carvedilol 25 mg 07/02/25 21:00 07/03/25 08:37 Carvedilol 25 Mg Tablet PO 25 mg Q12HR FLAQUITA Administration Diazepam 5 mg 07/02/25 16:00 07/02/25 22:43 Diazepam (*Crx) 5 Mg Tablet PO 5 mg Q6H PRN Administration Anxiety/Muscle Spasm Diphenhydramine HCl 25 mg 07/02/25 16:00 Diphenhydramine Hcl Inj 50 Mg/Ml Vial IV PUSH Q6H PRN Itching Ezetimibe 10 mg 07/03/25 09:00 07/03/25 08:39 Ezetimibe 10 Mg Tablet PO 10 mg DAILY FLAQUITA Administration Empagliflozin 10 mg 07/03/25 09:00 07/03/25 08:37 Empagliflozin 10 Mg Tablet PO 10 mg DAILY FLAQUITA Administration Famotidine 20 mg 07/02/25 21:00 07/03/25 08:37 Famotidine 20 Mg Tablet PO 20 mg Q12HR FLAQUITA Administration Hydralazine HCl 50 mg 07/02/25 17:00 07/03/25 08:39 Hydralazine Hcl 50 Mg Tablet PO 50 mg TID FLAQUITA Administration Hydromorphone HCl 1 mg 07/02/25 16:00 Hydromorphone Hcl Inj (*Crx) 1 Mg/Ml Syr IV PUSH Q2H PRN Breakthrough Pain Rated 7-10 or NPO Hydromorphone HCl 0.5 mg 07/02/25 16:00 Hydromorphone Hcl Inj (*Crx) 1 Mg/Ml Syr IV PUSH Q2H PRN Breakthrough Pain Rated 4-6 or NPO Ibuprofen 800 mg in 200 mls @ 400 mls/hr 07/02/25 16:00 Caldolor 800 Mg/200 Ml IVPB Q6H PRN Breakthrough Pain Rated 1-3 or NPO Ketorolac Tromethamine 15 mg 07/02/25 16:00 07/03/25 05:10 Ketorolac 15 Mg/Ml Vial (*Bkc) IV PUSH 07/03/25 12:01 15 mg Q6HR FLAQUITA Administration Naloxone HCl 0.1 mg 07/02/25 16:00 Naloxone Hcl 0.4 Mg/Ml Vial IV PUSH Q2M PRN Opiate Reversal Ondansetron HCl 4 mg 07/02/25 16:00 Ondansetron Inj 4 Mg/2 Ml Vial IV PUSH Q4H PRN Nausea And Vomiting Oxycodone/Acetaminophen 1 tablet 07/02/25 16:00 07/03/25 08:40 Oxycodone/Acetaminophen (*Crx) 5-325 Mg Tablet PO 1 tablet Q4H PRN Administration Pain Rated 4-6 Oxycodone/Acetaminophen 1 tab 07/02/25 16:00 07/02/25 20:16 Oxycodone/Acetaminophen (*Crx) 10-325 Mg Tablet PO 1 tab Q6H PRN Administration Pain Rated 7-10 Polyethylene Glycol 17 gm 07/03/25 09:00 07/03/25 08:40 Polyethylene Glycol 3350 17 Gm Powd.Pack PO 17 gm QAM FLAQUITA Administration Rivaroxaban 20 mg 07/02/25 17:00 07/02/25 17:15 Rivaroxaban 20 Mg Tablet PO 20 mg DAILY@1700 FLAQUITA Administration Sacubitril/Valsartan 1 tab 07/02/25 17:00 07/03/25 08:37 Sacubitril/Valsartan 97-103 Mg Tablet PO 1 tab BID FLAQUITA Administration Senna/Docusate Sodium 2 tab 07/02/25 17:00 07/03/25 08:41 Senna/Docusate Sodium Tablet PO Not Given BID [facility] Radiology Results: ITS Impressions Hip X-Ray 07/02/25 15:13 IMPRESSION: 1. Left total hip arthroplasty, negative for postoperative purposes. Labs Labs: Laboratory Results - last 24 hr 07/02/25 07/02/25 07/03/25 10:06 14:55 04:43 WBC 20.0 H 15.5 H RBC 4.32 L 3.95 L Hgb 13.7 L 12.6 L Hct 41.7 L 38.8 L MCV 96.5 98.2 MCH 31.7 31.9 MCHC 32.9 32.5 RDW 13.5 13.6 Plt Count 177 178 MPV 9.4 10.2 Immature Gran % (Auto) 0.6 H Neut % (Auto) 85.1 H Lymph % (Auto) 6.4 L [place] % (Auto) 7.8 Eos % (Auto) 0.0 Baso % (Auto) 0.1 L Lymph # (Auto) 0.99 [place] # (Auto) 1.2 H Eos # (Auto) 0.0 Baso # (Auto) 0.0 Abs Immat Gran (auto) 0.09 H Absolute Neuts (auto) 13.2 H Absolute Nucleated RBC 0.000 Nucleated RBC % 0.0 PT 14.0 INR 1.1 APTT 32.1 Sodium 134 L Potassium 4.0 Chloride 101 Carbon Dioxide 28 Anion Gap 5 BUN 26 H Creatinine 1.07 Estim Creat Clear Calc 67 Estimated GFR > 60 Glucose 132 H Calcium 8.2 L
[2025-07-03] MEDS: ACETAMINOPHEN 500 MG TABLET PO (13:20)
[2025-07-03] MEDS: SIMETHICONE 80 MG TAB.CHEW PO (16:15)
[2025-07-03] MEDS: RIVAROXABAN 20 MG TABLET PO (16:16)
[2025-07-03] MEDS: SENNA/DOCUSATE SODIUM TABLET 2 TAB PO (16:16)
--- NOTE | 2025-07-03 18:05 | P.PNAN_ITS ---
Anes - Prog Note Post-Op Date/Time: 07/03/25 18:05 Cardiovascular status: normal Respiratory status: normal Airway patency: baseline Mental status: baseline Post-Op hydration status: normal Vital Signs: Last Vital Signs Temp 36.4 C 07/03/25 14:00 Pulse 67 07/03/25 14:00 Resp 16 07/03/25 14:00 BP 119/60 07/03/25 14:00 Pulse Ox 98 07/03/25 14:00 O2 Del Method Room Air 07/03/25 08:15 O2 Flow Rate 8 07/02/25 15:05 FiO2 21 07/02/25 20:40 Pain Score (VAS): 0 I/O: Intake & Output 07/03/25 07/03/25 07/03/25 07:59 15:59 23:59 Intake Total 50 240 Output Total 1000 Balance -950 240 Laboratory Tests 07/03/25 04:43 07/03/25 04:43 07/03/25 04:43 WBC 15.5 H RBC 3.95 L Hgb 12.6 L Hct 38.8 L MCV 98.2 MCH 31.9 MCHC 32.5 RDW 13.6 Plt Count 178 MPV 10.2 Immature Gran % (Auto) 0.6 H Neut % (Auto) 85.1 H Lymph % (Auto) 6.4 L [place] % (Auto) 7.8 Eos % (Auto) 0.0 Baso % (Auto) 0.1 L Lymph # (Auto) 0.99 [place] # (Auto) 1.2 H Eos # (Auto) 0.0 Baso # (Auto) 0.0 Abs Immat Gran (auto) 0.09 H Absolute Neuts (auto) 13.2 H Absolute Nucleated RBC 0.000 Nucleated RBC % 0.0 Sodium 134 L Potassium 4.0 Chloride 101 Carbon Dioxide 28 Anion Gap 5 BUN 26 H Creatinine 1.07 Estim Creat Clear Calc 67 Estimated GFR > 60 Glucose 132 H Calcium 8.2 L Post-procedural complaints: none Patient Feedback: Patient satisfied with anesthetic care.
== END 2025-07-03 18:25 | disposition home health service (06) ==
LOC: ANHSURGERY 08:30 → ANH2MED 16:02
PROVIDERS: Anesthesiology; PCP Internal Medicine; Visit Provider Orthopaedic Surgery
PROC: (CPT 27130; principal; 2025-07-02 11:00)
DX: M16.12 Unilateral primary osteoarthritis, left hip (principal); M25.552 Pain in left hip; I25.10 Atherosclerotic heart disease of native coronary artery without angina pectoris; E66.9 Obesity, unspecified; Z68.34 Body mass index [BMI] 34.0-34.9, adult; Z79.01 Long term (current) use of anticoagulants; Z79.84 Long term (current) use of oral hypoglycemic drugs; Z79.891 Long term (current) use of opiate analgesic; I48.0 Paroxysmal atrial fibrillation; Z95.1 Presence of aortocoronary bypass graft; Z80.1 Family history of malignant neoplasm of trachea, bronchus and lung; Z87.891 Personal history of nicotine dependence
CPT/HCPCS: 27130; 36415; 73502; 80048; 85025; 85027; 85610; 85730; 97110; 97161; 97165; 97530; 97535; J0690; A9270; C1776; J0166; J1100; J1171; J1885; J2003; J2250; J2270; J2405; J2704; J2795; J3010; J7120